=== PATIENT | female | born 1980 | race Caucasian/White ===

== ENCOUNTER 2017-04-17 15:10 | Emergency (ER) | payer BC, OTHER ==
[~2017-04-17] VITALS: Ht 162.6 cm; Wt 63.5 kg
[~2017-04-17 15:10] MED LIST: CIPR500 PO; ERYT1OIN BOTHEYES; Flomax0.4 MG PO; HYDMOR4 PO; IBUP800 PO; MULVITMIND PO; MULVITMINE; Norco 10-325 T1 EACH PO; Norco 5-325 Ta1 EACH PO; ONDA4 PO; PENVK500 PO; PROM25 PO; Percocet 5-3251 EACH PO; RXHYDMOR2 PO; RXPROM25 PO; RXPROM25S PR; TAMS.4ER PO; TRAM50 PO; Verotin-Gr Cap1 EACH PO; Zofran Odt4 MG SL
[2017-04-17] MEDS ORDERED: Sudogest60 MG PO (16:41)
[2017-04-17] MEDS ORDERED: Augmentin 875-1 EACH PO (16:41)
== END 2017-04-17 16:49 | disposition home or self-care (01) ==
LOC: ER 15:10
DX: J32.9 Chronic sinusitis, unspecified (principal); Z87.891 Personal history of nicotine dependence; Z87.442 Personal history of urinary calculi
CPT/HCPCS: 70450; 96372; 99284; J0780; J1200; J1885

== ENCOUNTER 2017-05-30 23:19 | Emergency (ER) | payer BC, OTHER ==
[~2017-05-30] VITALS: Ht 162.6 cm; Wt 63.5 kg
[~2017-05-30 23:19] MED LIST changes: +Augmentin 875-1 EACH PO; +Sudogest60 MG PO
[2017-05-31] MEDS ORDERED: Doxycycline Hy100 MG PO (00:23)
== END 2017-05-31 01:10 | disposition home or self-care (01) ==
LOC: ER 23:19
DX: R21 Rash and other nonspecific skin eruption (principal); L08.9 Local infection of the skin and subcutaneous tissue, unspecified; Z79.899 Other long term (current) drug therapy; Z87.442 Personal history of urinary calculi; Z87.891 Personal history of nicotine dependence
CPT/HCPCS: 99283

== ENCOUNTER 2019-02-22 10:52 | Emergency (ER) | payer BC ==
[~2019-02-22] VITALS: Ht 162.6 cm; Wt 70.3 kg
[~2019-02-22 10:52] MED LIST changes: +Doxycycline Hy100 MG PO
== END 2019-02-22 11:33 | disposition home or self-care (01) ==
LOC: ER 10:52
DX: S50.12XA Contusion of left forearm, initial encounter (principal); Z87.891 Personal history of nicotine dependence; X58.XXXA Exposure to other specified factors, initial encounter
CPT/HCPCS: 73090; 99283-25

== ENCOUNTER 2019-08-27 22:11 | Inpatient (IN) | payer BC ==
[~2019-08-27] VITALS: Ht 162.6 cm; Wt 64.9 kg
[2019-08-27] MEDS ORDERED: Catapres0.2 MG PO (22:18)
[2019-08-27] MEDS ORDERED: Ativan1 MG PO (22:19)
[2019-08-27 23:17] LABS: Source, Urine Clean Catch
[2019-08-27 23:20] LABS: Bilirubin, Urine Neg (Neg); Blood, Urine 4+ (Neg); Glucose Qualitative, Urine Neg (Neg); Ketones, Urine Neg (Neg); Leukocyte Esterase, Urine 1+ (Neg); Nitrite, Urine Neg (Neg); Protein, Urine 1+ (Neg); Specific Gravity, Urine 1.015 (1.003-1.022); Urobilinogen, Urine NORM (Normal); pH, Urine 6.5 (5.0-8.0)
[2019-08-27 23:21] LABS: Appearance, Urine Clear (Clear); Color, Urine Yellow (P-Yellow)
[2019-08-27 23:25] LABS: BASOPHILS ABSOLUTE AUTO 0.07 K/mm3 (0.00-0.23); BASOPHILS PERCENT AUTO 1 % (0-2); EOSINOPHILS ABSOLUTE AUTO 0.37 K/mm3 (0.00-0.68); EOSINOPHILS PERCENT AUTO 4 % (0-6); IMMATURE GRAN ABSOLUTE AUTO 0.02 K/mm3 (0.00-0.10); IMMATURE GRAN PERCENT AUTO 0 % (0-1); LYMPHOCYTES ABSOLUTE AUTO 2.13 K/mm3 (0.84-5.20); LYMPHOCYTES PERCENT AUTO 21 % (21-46); MONOCYTES ABSOLUTE AUTO 0.53 K/mm3 (0.16-1.47); MONOCYTES PERCENT AUTO 5 % (4-13); Mean Corpuscular HGB 30.1 pg (26.0-34.0); Mean Corpuscular HGB Conc 33.3 g/dL (31.5-36.5); Mean Corpuscular Volume 90 fL (80-100); Mean Platelet Volume 11.3 fL (9.1-12.4); NEUTROPHILS ABSOLUTE AUTO 6.85 K/mm3 (1.96-9.15); NEUTROPHILS PERCENT AUTO 69 % (41-73); Platelet Count 246 K/mm3 (150-400); RDW Coefficient Variation 13.7 % (11.7-14.2); RDW Standard Deviation 45.6 fL (35.1-46.3); Red Blood Cell Count 4.99 M/mm3 (3.80-5.20); White Blood Cell Count 9.97 K/mm3 (4.00-11.30)
[2019-08-27 23:31] LABS: U Amphetamine Screen Not Detected; U Barbituate Screen Not Detected; U Benzodiazapine Screen DETECTED; U Buprenorphine Screen Not Detected; U Cannabinoids Screen DETECTED; U Cocaine Screen Not Detected; U Methadone Screen Not Detected; U Methamphetamine Screen Not Detected; U Opiates Screen Not Detected; U Oxycodone Screen Not Detected; U Phencyclidine Screen Not Detected; U Propoxyphene Screen Not Detected
[2019-08-27 23:32] LABS: Bacteria Few /hpf; Mucus Light (0-Heavy); Squamous Epithelial Cells Few /hpf (Few)
[2019-08-27 23:48] LABS: Alanine Aminotransfer (ALT/SGP 31 U/L (12-78); Albumin, Blood 4.3 g/dL (3.4-5.0); Albumin/Globulin Ratio 1.1 (0.8-1.8); Alk Phos 56 U/L (50-136); Anion Gap 5 mmol/L (6-16); Aspartate Aminotrans (AST/SGOT 21 U/L (12-37); Bilirubin, Total 0.3 mg/dL (0.1-1.0); Blood Urea Nitrogen 9 mg/dL (8-24); CO2, Blood 27 mmol/L (21-32); Calcium, Blood 9.2 mg/dL (8.5-10.1); Chloride, Blood 111 mmol/L (98-108); Ethanol (Alcohol), Blood, Med 75 mg/dL; Globulin, Blood 3.8 g/dL (2.2-4.0); Glomerular Filtration Rate >60 (60-); Glucose, Blood 76 mg/dL (70-99); Potassium, Blood 3.2 mmol/L (3.5-5.5); Salicylate <1.7 mg/dL (2.8-20.0); Sodium, Blood 143 mmol/L (136-145); Thyroxine (T4) 9.8 ug/dL (4.8-13.9); Total Protein, Blood 8.1 g/dL (6.4-8.2)
[2019-08-27 23:49] LABS: Acetaminophen, Random <2.0 ug/mL (10.0-30.0)
--- NOTE | 2019-08-28 02:49 | NUR ---
PT ARRIVES FROM ED TO ICU 11 AT 0135. PT ABLE TO ASSIST TRANSFERRING TO ICU STRETCHER. PT APPEARS DROWSY BUT ABLE TO APPROPRIATELY FOLLOW COMMANDS. PT DENIES SI STATING THAT SHE IS "GOING THROUGH A DIVORCE" AND THAT HER KIDS WERE "FORCED" TO GO TO THEIR DAD'S HOUSE THIS WEEKEND FOR VISITATION. PT REPORTS THAT SHE DOESN'T NORMALLY DRINK BUT THAT SHE DRANK VODKA (UNABLE TO RECALL HOW MUCH), TOOK 2 LORAZEPAM, 1 KLONOPINE THAT SHE FOUND AND UNSPECIFIED NUMBER OF CLONIDINE. PT DENIES HISTORY OF DEPRESSION, REPORTS ONGOING ANXIETY. DENIES CURRENT OR PREVIOUS SUICIDE ATTEMPTS. PT EMOTIONAL AT TIMES ASKING TO TALK TO "DEON" HER CURRENT BOYFRIEND AND THEN STATES THAT SHE "DOESN'T WANT TO TALK ABOUT THIS ANYMORE". PT PLACED ON 2-MD HOLD. ROOM MITIGATED PER POLICY, DOOR/CURTAIN OPEN, PT ON CAMERA MONITORING (CALLED TO CONFIRM). ALEXAKATREVOR/TELEPSYCH CONSULT SUBMITTED. PT'S VSS. PT DENIES NEEDS AT THIS TIME. BANANA BAG INFUSING @200 ML/HR, KCL @50 ML/HR. SEE FULL ADMISSION ASSESSMENT
[2019-08-28 03:22] LABS: BASOPHILS ABSOLUTE AUTO 0.06 K/mm3 (0.00-0.23); BASOPHILS PERCENT AUTO 1 % (0-2); EOSINOPHILS ABSOLUTE AUTO 0.35 K/mm3 (0.00-0.68); EOSINOPHILS PERCENT AUTO 4 % (0-6); Hematocrit 42.1 % (33.0-51.0); Hemoglobin 14.3 g/dL (11.5-16.0); IMMATURE GRAN ABSOLUTE AUTO 0.02 K/mm3 (0.00-0.10); IMMATURE GRAN PERCENT AUTO 0 % (0-1); LYMPHOCYTES ABSOLUTE AUTO 2.46 K/mm3 (0.84-5.20); LYMPHOCYTES PERCENT AUTO 28 % (21-46); MONOCYTES ABSOLUTE AUTO 0.46 K/mm3 (0.16-1.47); MONOCYTES PERCENT AUTO 5 % (4-13); Mean Corpuscular HGB 30.3 pg (26.0-34.0); Mean Corpuscular Volume 89 fL (80-100); Mean Platelet Volume 11.1 fL (9.1-12.4); NEUTROPHILS ABSOLUTE AUTO 5.58 K/mm3 (1.96-9.15); NEUTROPHILS PERCENT AUTO 63 % (41-73); Platelet Count 218 K/mm3 (150-400); RDW Coefficient Variation 13.6 % (11.7-14.2); RDW Standard Deviation 45.1 fL (35.1-46.3); Red Blood Cell Count 4.72 M/mm3 (3.80-5.20); White Blood Cell Count 8.93 K/mm3 (4.00-11.30)
[2019-08-28 03:39] LABS: Anion Gap 5 mmol/L (6-16); Blood Urea Nitrogen 8 mg/dL (8-24); Bun/Creatinine Ratio 12.1 (12.0-20.0); CO2, Blood 25 mmol/L (21-32); Calcium, Blood 8.9 mg/dL (8.5-10.1); Chloride, Blood 113 mmol/L (98-108); Creatinine, Blood 0.66 mg/dL (0.40-1.00); Glomerular Filtration Rate >60 (60-); Glucose, Blood 111 mg/dL (70-99); Potassium, Blood 3.4 mmol/L (3.5-5.5); Sodium, Blood 143 mmol/L (136-145)
--- NOTE | 2019-08-28 03:49 | NUR ---
CONTACTED POISON CONTROL, REVIEWED EKG AND 0330 LABS. POISON CONTROL SUPPORTS CURRENT PLAN OF CARE. SUGGESTED TO CALL BACK NEEDED IF ANY MEDICAL CHANGES.
--- NOTE | 2019-08-28 04:35 | NUR ---
SPOKE WITH PT'S BOYFRIEND "DEON". ACCORDING TO DEON, HE AND PT WERE "HAVING A GOOD TIME AND PT DECIDED TO TRY AND MAKE IT BETTER BY ADDING PILLS". DEON REPORTS PT DRANK HALF OF A FIFTH OF VODKA, TOOK 2 CLONIDINE, 1 KLONOPIN, AND TO 2 LORAZEPAM. DEON STATES PT APPEARED TO HAVE A "SMALL SEIZURE TWICE" BUT WAS COHERENT DURING THEM. DEON STATES HE GOT PT DRESSED BUT COULDN'T GET HER DOWNSTAIRS SO HE CALLED 911 FOR ASSISTANCE. DEON ACKNOWLEDGES PT WAS EMOTIONAL BUT ADAMENTLY DENIES PT WAS SUICIDAL AT ANY TIME. DEON REPORTS THAT THIS IS THE FIRST TIME IN A YEAR THAT PT HAS HAD ANYTHING ALCOHOLIC TO DRINK. DEON REPORTS THAT PT IS SUPPOSED TO PICK HER CHILDREN UP FROM HER EX IN THE MORNING, DEON SAYS PT'S PARENTS LIVE "2 HOUSES DOWN" AND THAT HE WILL CALL AND ARRANGE FOR THEM TO PICK KIDS UP AND CARE FOR THEM UNTIL PT IS RELEASE. UPDATED BOYFRIEND ON 2-MD PSYCH HOLD AND PLAN OF CARE. DEON STATES UNDERSTANDING AND RELATES THAT HE WILL UPDATE FAMILY IN MORNING.
--- NOTE | 2019-08-28 06:00 | NUR ---
SHIFT SUMMARY NO ACUTE CHANGES SINCE ADMISSION. PT HAS BEEN SLEEPING SINCE ADMISSION TO ICU. VSS. SEE PREVIOUS NOTES FROM THIS SHIFT. WILL REPORT TO DAYSHIFT NURSE.
--- NOTE | 2019-08-28 07:32 | NUR ---
ASSUMED CARE: REPORT RECEIVED FROM EBEN Heredia RN. ASSUMED CARE OF THIS PT AT APPROX 0700. AT THIS TIME, THE PT IS RESTING QUIETLY. PER REPORT, THE PT CONTINUES TO DENY ANY SI. MODERATE RISK SI PRECAUTIONS IN PLACE W/ ROOM MITIGATED & CAMERA MONITORING IN PLACE. THE PT IS AMBULATORY & ABLE TO CALL FOR ASSISTANCE APPROPRIATELY. WILL CONTINUE TO MONITOR & UPDATE NEEDED.
--- NOTE | 2019-08-28 09:15 | NUR ---
DR TOMAS: PROVIDER AT BEDSIDE TO EVAL PT. SHE REQUESTS THAT THIS RN CHECK IF DR BOCANEGRA IS SCHEDULED THIS WEEKEND, HE IS NOT & THEREFORE TELEPSYCHIATRY HAS BEEN ORDERED FOR THIS PT. REGULAR DIET ORDERED & PT STATUS CHANGED TO MEDICAL W/ NO TELE, ORDERS PLACED.
--- NOTE | 2019-08-28 09:38 | NUR ---
TELEPSYCHIATRY: CONSULTATION IS OCCURING AT THIS TIME W/ DR MORALES. WILL UPDATE DR TOMAS W/ RESULTS ONCE CONSULTATION IS COMPLETED.
[2019-08-28] MEDS ORDERED: CLON.1 PO (10:49)
[2019-08-28] MEDS ORDERED: Ativan1 MG PO (10:50)
--- NOTE | 2019-08-28 11:50 | NUR ---
DISCHARGE TO HOME: PATIENT IS ABLE TO DRESS SELF & HAS BEEN TAKEN OUT VIA WC AT 1150 BY ERIC BROWER. PIV & ALL MONITORS HAVE BEEN REMOVED. D/C INFORMATION HAS BEEN REVIEWED & THE PT DENIES FURTHER QUESTIONS. D/C PACKET & ALL BELONGINGS HAVE BEEN TAKEN OUT W/ PT.
== END 2019-08-28 11:50 | disposition home or self-care (01) | DRG 917 ==
LOC: ER 22:11 → ICUW 08-28 00:19
PROVIDERS: Emergency Medicine; ADMIT Family Medicine
DX: T42.4X2A Poisoning by benzodiazepines, intentional self-harm, initial encounter (principal); G92 Toxic encephalopathy; T46.5X2A Poisoning by other antihypertensive drugs, intentional self-harm, initial encounter; Y92.9 Unspecified place or not applicable; F41.9 Anxiety disorder, unspecified; Z87.891 Personal history of nicotine dependence; E87.6 Hypokalemia; Z63.5 Disruption of family by separation and divorce; F10.929 Alcohol use, unspecified with intoxication, unspecified; Y90.3 Blood alcohol level of 60-79 mg/100 ml
CPT/HCPCS: 36415; 80048; 80053; 81001; 81025; 84436; 85025; 87086; 87147; 93005; 93010; 99285-25; G0480; J3411; J3475; J3480; J7042; Q3014

== ENCOUNTER 2019-12-28 00:35 | Emergency (ER) | payer BC, OTHER ==
[~2019-12-28] VITALS: Ht 162.6 cm; Wt 61.2 kg
[~2019-12-28 00:35] MED LIST changes: +Ativan1 MG PO; +CLON.1 PO; +Catapres0.2 MG PO
[2019-12-28 01:36] LABS: BASOPHILS ABSOLUTE AUTO 0.07 K/mm3 (0.00-0.23); BASOPHILS PERCENT AUTO 1 % (0-2); EOSINOPHILS ABSOLUTE AUTO 0.44 K/mm3 (0.00-0.68); EOSINOPHILS PERCENT AUTO 4 % (0-6); Hematocrit 42.5 % (33.0-51.0); Hemoglobin 14.3 g/dL (11.5-16.0); IMMATURE GRAN ABSOLUTE AUTO 0.03 K/mm3 (0.00-0.10); IMMATURE GRAN PERCENT AUTO 0 % (0-1); LYMPHOCYTES ABSOLUTE AUTO 2.85 K/mm3 (0.84-5.20); LYMPHOCYTES PERCENT AUTO 29 % (21-46); MONOCYTES ABSOLUTE AUTO 0.66 K/mm3 (0.16-1.47); MONOCYTES PERCENT AUTO 7 % (4-13); Mean Corpuscular HGB 30.9 pg (26.0-34.0); Mean Corpuscular HGB Conc 33.6 g/dL (31.5-36.5); Mean Corpuscular Volume 92 fL (80-100); Mean Platelet Volume 11.3 fL (9.1-12.4); NEUTROPHILS ABSOLUTE AUTO 5.95 K/mm3 (1.96-9.15); NEUTROPHILS PERCENT AUTO 60 % (41-73); Platelet Count 232 K/mm3 (150-400); RDW Coefficient Variation 13.2 % (11.7-14.2); RDW Standard Deviation 45.1 fL (35.1-46.3); Red Blood Cell Count 4.63 M/mm3 (3.80-5.20)
== END 2019-12-28 03:30 | disposition left against medical advice (07) ==
LOC: ER 00:35
PROVIDERS: Student in an Organized Health Care Education/Training Program
DX: N93.9 Abnormal uterine and vaginal bleeding, unspecified (principal); Z87.442 Personal history of urinary calculi; Z87.891 Personal history of nicotine dependence
CPT/HCPCS: 84703; 85025; 96374; 99284-25; J1885

== ENCOUNTER 2020-04-12 17:54 | Emergency (ER) | payer OTHER ==
[~2020-04-12] VITALS: Ht 162.6 cm; Wt 61.2 kg
[2020-04-12] MEDS ORDERED: AMOX500 PO (19:03)
[2020-04-12] MEDS ORDERED: Norco 7.5-3251 EACH PO (19:03)
[2020-04-12] MEDS ORDERED: CIPRODEX OTIC7.5 M1 RIGHTEAR (19:03)
== END 2020-04-12 19:21 | disposition home or self-care (01) ==
LOC: ER 17:54
DX: H60.91 Unspecified otitis externa, right ear (principal); H61.23 Impacted cerumen, bilateral
CPT/HCPCS: 99282; A9270

== ENCOUNTER 2020-04-19 16:33 | Emergency (ER) | payer BC, OTHER ==
[~2020-04-19] VITALS: Ht 162.6 cm; Wt 61.2 kg
[~2020-04-19 16:33] MED LIST changes: +AMOX500 PO; +CIPRODEX OTIC7.5 M1 RIGHTEAR; +Norco 7.5-3251 EACH PO
[2020-04-19] MEDS ORDERED: HYDR1TAB94 PO (19:27)
== END 2020-04-19 19:31 | disposition home or self-care (01) ==
LOC: ER 16:33
DX: S00.83XA Contusion of other part of head, initial encounter (principal); S00.11XA Contusion of right eyelid and periocular area, initial encounter; Z87.442 Personal history of urinary calculi; Z87.891 Personal history of nicotine dependence; Y04.2XXA Assault by strike against or bumped into by another person, initial encounter
CPT/HCPCS: 70486; 99284-25

== ENCOUNTER 2020-04-26 03:13 | Emergency (ER) | payer BC, OTHER ==
[~2020-04-26] VITALS: Ht 162.6 cm; Wt 61.2 kg
[~2020-04-26 03:13] MED LIST changes: +HYDR1TAB94 PO
== END 2020-04-26 04:15 | disposition home or self-care (01) ==
LOC: ER 03:13
DX: S70.02XA Contusion of left hip, initial encounter (principal); Z87.442 Personal history of urinary calculi; Z87.891 Personal history of nicotine dependence; Y04.2XXA Assault by strike against or bumped into by another person, initial encounter
CPT/HCPCS: 99283

== ENCOUNTER 2020-06-29 10:46 | Emergency (ER) | payer BC, OTHER ==
[~2020-06-29] VITALS: Ht 162.6 cm; Wt 63.5 kg
[2020-06-29] MEDS ORDERED: IBUP400 PO (12:22)
== END 2020-06-29 13:00 | disposition home or self-care (01) ==
LOC: ER 10:46
DX: F41.9 Anxiety disorder, unspecified (principal); F17.210 Nicotine dependence, cigarettes, uncomplicated; Z79.899 Other long term (current) drug therapy
CPT/HCPCS: 70450; 71046; 72125; 99284-25

== ENCOUNTER 2020-08-22 22:41 | Emergency (ER) | payer BC, OTHER ==
[~2020-08-22] VITALS: Ht 162.6 cm; Wt 68.0 kg
[~2020-08-22 22:41] MED LIST changes: +IBUP400 PO
[2020-08-22 23:09] LABS: BASOPHILS ABSOLUTE AUTO 0.06 K/mm3 (0.00-0.23); BASOPHILS PERCENT AUTO 1 % (0-2); EOSINOPHILS ABSOLUTE AUTO 0.31 K/mm3 (0.00-0.68); EOSINOPHILS PERCENT AUTO 4 % (0-6); Hematocrit 38.1 % (33.0-51.0); Hemoglobin 12.9 g/dL (11.5-16.0); IMMATURE GRAN ABSOLUTE AUTO 0.02 K/mm3 (0.00-0.10); IMMATURE GRAN PERCENT AUTO 0 % (0-1); LYMPHOCYTES ABSOLUTE AUTO 1.48 K/mm3 (0.84-5.20); LYMPHOCYTES PERCENT AUTO 19 % (21-46); MONOCYTES ABSOLUTE AUTO 0.88 K/mm3 (0.16-1.47); MONOCYTES PERCENT AUTO 11 % (4-13); Mean Corpuscular HGB 30.6 pg (26.0-34.0); Mean Corpuscular HGB Conc 33.9 g/dL (31.5-36.5); Mean Corpuscular Volume 90 fL (80-100); Mean Platelet Volume 11.2 fL (9.1-12.4); NEUTROPHILS ABSOLUTE AUTO 5.16 K/mm3 (1.96-9.15); NEUTROPHILS PERCENT AUTO 65 % (41-73); Platelet Count 211 K/mm3 (150-400); RDW Coefficient Variation 13.6 % (11.7-14.2); RDW Standard Deviation 44.9 fL (35.1-46.3); Red Blood Cell Count 4.22 M/mm3 (3.80-5.20); White Blood Cell Count 7.91 K/mm3 (4.00-11.30)
[2020-08-22 23:21] LABS: Alanine Aminotransfer (ALT/SGP 35 U/L (12-78); Albumin, Blood 3.7 g/dL (3.4-5.0); Alk Phos 73 U/L (50-136); Anion Gap 5 mmol/L (6-16); Aspartate Aminotrans (AST/SGOT 17 U/L (12-37); Bilirubin, Total 0.2 mg/dL (0.1-1.0); Blood Urea Nitrogen 10 mg/dL (8-24); Bun/Creatinine Ratio 11.8 (12.0-20.0); CO2, Blood 24 mmol/L (21-32); Calcium, Blood 9.6 mg/dL (8.5-10.1); Chloride, Blood 110 mmol/L (98-108); Creatinine, Blood 0.85 mg/dL (0.40-1.00); Globulin, Blood 3.6 g/dL (2.2-4.0); Glomerular Filtration Rate >60 (60-); Glucose, Blood 111 mg/dL (70-99); Potassium, Blood 3.6 mmol/L (3.5-5.5); Sodium, Blood 139 mmol/L (136-145); Total Protein, Blood 7.3 g/dL (6.4-8.2)
[2020-08-22 23:23] LABS: Source, Urine Clean Catch
[2020-08-22 23:25] LABS: Bilirubin, Urine Neg (Neg); Blood, Urine 3+ (Neg); Glucose Qualitative, Urine Neg (Neg); Ketones, Urine Neg (Neg); Leukocyte Esterase, Urine 3+ (Neg); Nitrite, Urine Pos (Neg); Protein, Urine 2+ (Neg); Specific Gravity, Urine 1.015 (1.003-1.022); Urobilinogen, Urine NORM (Normal)
[2020-08-22 23:34] LABS: Appearance, Urine Hazy (Clear); Color, Urine Yellow (P-Yellow)
[2020-08-22 23:35] LABS: Bacteria Many /hpf; Red Blood Cells, Urine 0-2 /hpf (0-2); Squamous Epithelial Cells Few /hpf (Few); White Blood Cells, Urine TNTC /hpf (0-5)
[2020-08-22] MEDS ORDERED: SERT25 PO (23:40)
[2020-08-23 03:40] LABS: SARS-Cov-2 (COVID-19) PCR, MMC NEGATIVE (NEGATIVE)
== END 2020-08-23 04:48 | disposition left against medical advice (07) ==
LOC: ER 22:41
PROVIDERS: Emergency Medicine; Physician Assistant
DX: N13.2 Hydronephrosis with renal and ureteral calculous obstruction (principal); R82.81 Pyuria; Z20.822 Contact with and (suspected) exposure to COVID-19
CPT/HCPCS: 36415; 74176; 80053; 81001; 81025; 85025; 87077; 87086; 87186; 96365; 96375; 99284-25; J0696; J1170; J1885; J2405; J3010; U0004

== ENCOUNTER 2020-10-10 20:42 | Emergency (ER) | payer BC, OTHER ==
[~2020-10-10] VITALS: Ht 162.6 cm; Wt 68.0 kg
[~2020-10-10 20:42] MED LIST changes: +SERT25 PO
== END 2020-10-11 00:18 | disposition home or self-care (01) ==
LOC: ER 20:42
DX: T71.9XXA Asphyxiation due to unspecified cause, initial encounter (principal); S00.83XA Contusion of other part of head, initial encounter; Z87.891 Personal history of nicotine dependence; Z79.899 Other long term (current) drug therapy; Y04.2XXA Assault by strike against or bumped into by another person, initial encounter
CPT/HCPCS: 70450; 99284-25; A9270

== ENCOUNTER 2021-03-07 11:48 | Emergency (ER) | payer OTHER ==
[~2021-03-07] VITALS: Ht 162.6 cm; Wt 65.8 kg
[2021-03-07 13:13] LABS: BASOPHILS ABSOLUTE AUTO 0.07 K/mm3 (0.00-0.23); BASOPHILS PERCENT AUTO 1 % (0-2); EOSINOPHILS ABSOLUTE AUTO 0.22 K/mm3 (0.00-0.68); EOSINOPHILS PERCENT AUTO 3 % (0-6); Hematocrit 43.1 % (33.0-51.0); Hemoglobin 14.7 g/dL (11.5-16.0); IMMATURE GRAN ABSOLUTE AUTO 0.02 K/mm3 (0.00-0.10); IMMATURE GRAN PERCENT AUTO 0 % (0-1); LYMPHOCYTES ABSOLUTE AUTO 2.23 K/mm3 (0.84-5.20); LYMPHOCYTES PERCENT AUTO 25 % (21-46); MONOCYTES PERCENT AUTO 7 % (4-13); Mean Corpuscular HGB 29.9 pg (26.0-34.0); Mean Corpuscular HGB Conc 34.1 g/dL (31.5-36.5); Mean Corpuscular Volume 88 fL (80-100); Mean Platelet Volume 11.3 fL (9.1-12.4); NEUTROPHILS ABSOLUTE AUTO 5.81 K/mm3 (1.96-9.15); NEUTROPHILS PERCENT AUTO 65 % (41-73); Platelet Count 238 K/mm3 (150-400); RDW Standard Deviation 42.5 fL (35.1-46.3); Red Blood Cell Count 4.91 M/mm3 (3.80-5.20); White Blood Cell Count 8.95 K/mm3 (4.00-11.30)
[2021-03-07 13:35] LABS: Alanine Aminotransfer (ALT/SGP 35 U/L (12-78); Albumin, Blood 4.2 g/dL (3.4-5.0); Albumin/Globulin Ratio 1.2 (0.8-1.8); Alk Phos 62 U/L (50-136); Anion Gap 6 mmol/L (6-16); Aspartate Aminotrans (AST/SGOT 25 U/L (12-37); Bilirubin, Total 0.3 mg/dL (0.1-1.0); Blood Urea Nitrogen 11 mg/dL (8-24); Bun/Creatinine Ratio 13.1 (12.0-20.0); CO2, Blood 24 mmol/L (21-32); Chloride, Blood 111 mmol/L (98-108); Creatinine, Blood 0.84 mg/dL (0.40-1.00); Globulin, Blood 3.5 g/dL (2.2-4.0); Glomerular Filtration Rate >60 (60-); Glucose, Blood 84 mg/dL (70-99); Potassium, Blood 4.1 mmol/L (3.5-5.5); Sodium, Blood 141 mmol/L (136-145); Total Protein, Blood 7.7 g/dL (6.4-8.2)
[2021-03-07 13:39] LABS: Source, Urine Clean Catch
[2021-03-07 14:05] LABS: Appearance, Urine Clear (Clear); Bilirubin, Urine Neg (Neg); Blood, Urine Neg (Neg); Color, Urine Yellow (P-Yellow); Glucose Qualitative, Urine Neg (Neg); Ketones, Urine Neg (Neg); Leukocyte Esterase, Urine 2+ (Neg); Nitrite, Urine Neg (Neg); Protein, Urine 1+ (Neg); Specific Gravity, Urine 1.015 (1.003-1.022); Urobilinogen, Urine NORM (Normal)
[2021-03-07 14:23] LABS: Red Blood Cells, Urine 0-2 /hpf (0-2); Squamous Epithelial Cells Mod /hpf (Few)
[2021-03-07 14:24] LABS: Bacteria Many /hpf
[2021-03-07 14:59] LABS: Source, Urine Clean Catch
[2021-03-07 15:02] LABS: Appearance, Urine Clear (Clear); Bilirubin, Urine Neg (Neg); Blood, Urine Neg (Neg); Color, Urine Yellow (P-Yellow); Glucose Qualitative, Urine Neg (Neg); Ketones, Urine Neg (Neg); Leukocyte Esterase, Urine 2+ (Neg); Nitrite, Urine Neg (Neg); Protein, Urine Neg (Neg); Urobilinogen, Urine NORM (Normal)
[2021-03-07 15:10] LABS: Bacteria Few /hpf; Red Blood Cells, Urine 0-2 /hpf (0-2); Squamous Epithelial Cells Few /hpf (Few)
[2021-03-07] MEDS ORDERED: Norco 5-325 Ta1 EACH PO (16:26)
[2021-03-07] MEDS ORDERED: CEPH250A PO (16:26)
== END 2021-03-07 17:05 | disposition home or self-care (01) ==
LOC: ER 11:48
PROVIDERS: Physician Assistant
DX: N13.2 Hydronephrosis with renal and ureteral calculous obstruction (principal); Z87.442 Personal history of urinary calculi
CPT/HCPCS: 36415; 76770; 80053; 81001; 81025; 85025; 87086; 96374; 96375; 96376; 99284-25; A9270; J0696; J1170; J1885; J2405

== ENCOUNTER → 2024-01-11 | Outpatient (CLI) | payer OTHER ==
[~2024-01-11] MED LIST changes: +CEPH250A PO
== END ==
LOC: LAB 10:59 → LAB SHORT 10:59
DX: N39.0 Urinary tract infection, site not specified (principal)
CPT/HCPCS: 87086

== ENCOUNTER 2024-02-25 13:08 | Inpatient (IN) | payer OTHER ==
[~2024-02-25] VITALS: Ht 162.6 cm; Wt 83.0 kg
[2024-02-25] MEDS ORDERED: Misoprostol 200 MCG Tab VAG SCH (14:00)
[2024-02-25] MEDS ORDERED: Acetaminophen 500 MG Tab PO PRN (14:00)
[2024-02-25] MEDS ORDERED: FentaNYL 2mcg/ml-Bup 0.1% Epd 250 ML EPI PRN (14:00)
[2024-02-25] MEDS ORDERED: Misoprostol 200 MCG Tab BC PRN (14:00)
[2024-02-25] MEDS ORDERED: OXYTOCIN/RINGER'S LACTATE 500 ML IV SCH (14:00)
[2024-02-25] MEDS ORDERED: Lactated Ringer's 1,000 ML IV SCH ×3 (14:00)
[2024-02-25] MEDS ORDERED: Ondansetron HCl 2 MG / ML 2ML Vial IV PRN (14:00)
[2024-02-25] MEDS ORDERED: OXYTOCIN/RINGER'S LACTATE 500 ML IV PRN (14:00)
[2024-02-25] MEDS ORDERED: FentaNYL Citrate 50 MCG/ML 2 ML Injection IV PRN (14:00)
[2024-02-25] MEDS ORDERED: Carboprost Tromethamine 250 MCG/ML 1ML Amp IM PRN (14:00)
[2024-02-25] MEDS ORDERED: ePHEDrine Sulfate 50 MG/ML 1ML Injection XX PRN (14:00)
[2024-02-25] MEDS ORDERED: Misoprostol 200 MCG Tab PR PRN (14:00)
[2024-02-25] MEDS ORDERED: Oxytocin 10 Unit / ML Vial IM PRN (14:00)
[2024-02-25] MEDS ORDERED: Methylergonovine Maleate 0.2MG / ML 1ML Amp IM PRN (14:00)
[2024-02-25] MEDS ORDERED: Lactated Ringer's 1,000 ML IV PRN (14:00)
[2024-02-25 14:02] VITALS: BP 121/71
[2024-02-25] MEDS ORDERED: Calcium Carbonate 500 MG Tab Chew PO SCH (14:10)
[2024-02-25] MEDS ORDERED: Tranexamic Acid 1,000 MG in NS 100 ML IV SCH (14:25)
[2024-02-25 14:26] LABS: BASOPHILS ABSOLUTE AUTO 0.05 K/mm3 (0.00-0.23); BASOPHILS PERCENT AUTO 0 % (0-2); EOSINOPHILS ABSOLUTE AUTO 0.29 K/mm3 (0.00-0.68); EOSINOPHILS PERCENT AUTO 2 % (0-6); Hematocrit 36.8 % (33.0-51.0); Hemoglobin 12.9 g/dL (11.5-16.0); IMMATURE GRAN ABSOLUTE AUTO 0.18 K/mm3 (0.00-0.10); IMMATURE GRAN PERCENT AUTO 1 % (0-1); LYMPHOCYTES ABSOLUTE AUTO 1.75 K/mm3 (0.84-5.20); LYMPHOCYTES PERCENT AUTO 12 % (21-46); MONOCYTES ABSOLUTE AUTO 0.96 K/mm3 (0.16-1.47); MONOCYTES PERCENT AUTO 7 % (4-13); Mean Corpuscular HGB 30.8 pg (26.0-34.0); Mean Corpuscular HGB Conc 35.1 g/dL (31.5-36.5); Mean Corpuscular Volume 88 fL (80-100); Mean Platelet Volume 11.5 fL (9.1-12.4); NEUTROPHILS ABSOLUTE AUTO 11.06 K/mm3 (1.96-9.15); NEUTROPHILS PERCENT AUTO 78 % (41-73); Platelet Count 216 K/mm3 (150-400); RDW Coefficient Variation 13.9 % (11.7-14.2); RDW Standard Deviation 44.3 fL (35.1-46.3); Red Blood Cell Count 4.19 M/mm3 (3.80-5.20); White Blood Cell Count 14.29 K/mm3 (4.00-11.30)
[2024-02-25 15:45] VITALS: BP 125/75
[2024-02-25 16:00] VITALS: BP 124/75
[2024-02-25 16:15] VITALS: BP 128/80
--- NOTE | 2024-02-25 16:54 | NUR ---
patient states having some cramping
[2024-02-25 20:20] VITALS: BP 116/66
[2024-02-25] MEDS ORDERED: Misoprostol 200 MCG Tab VAG PRN (21:20)
--- NOTE | 2024-02-25 21:27 | NUR ---
Received pt into care at 0700. Pt ++ sobbing and crying. Oral Health Therapist at bedside for 2 hours provided education re process and emotional support. Snacks provided. Pt aware to call if any pressure or concerns. Received x2 doses of fentanyl for pain. Feeling more settled after same. Pt coping better with reassurance and pain meds. SO at bedside.
[2024-02-26] VITALS (31 sets, daily range): BP systolic 102–132; BP diastolic 56–92
--- NOTE | 2024-02-26 00:21 | NUR ---
Dr. Soto made aware of recent VE and pts choice to wait to do the next dose until cramping settles down. + emoional. consolable. pain managed with fentanyl.
[2024-02-26] MEDS ORDERED: HYDROmorphone 1 MG/ML 30 ML Bag IV PRN (06:00)
[2024-02-26] MEDS ORDERED: Misoprostol 100 MCG Tab PO SCH (06:05)
--- NOTE | 2024-02-26 06:57 | NUR ---
PT DELIVERED AT 0549. PT EMOTIONAL BUT CONSOLABLE. WONDERLY PRESENT FOR DELIVERY. GAVE MISO 400MCG PER ORDERS. PLACENTA NOT YET DELIVERED. WONDERLY SAID "OK" RO WAIT 1-2 HOURS TO WAIT FOR PLACENTA TO DELIVER. mADE UP TO BR TO HELP PASS SAME. PT UNABLE TO DO SAME. FLOW SCANT. VSS.
[2024-02-26] MEDS ORDERED: Ketorolac Tromethamine 30mg Vial IV PRN (07:30)
--- NOTE | 2024-02-26 07:35 | NUR ---
PT SITTING ON TOILET, HAS BEEN FOR LAST 15 MINUTES TO WORK WITH GRAVITY TO GET PLACENTA OUT. UMB CORD HANGING, WITH A LIGHT PULL, THE CORD DELIVERED ABOUT 4 INCHES, PT DENIES FEELING ANY THING IN THE VAGINA LIKE PRESSURE OR A TAMPON FEELING, BACK TO BED WITH CLEAN PAD BABY TO THE FRIDGE IN NURSERY, PARENTS WOULD LIKE PRINTS, BUT DUE TO COME BREAKDOWN OCCURING WITH BABY, SHE AND FOB ARE AWARE THAT IF BABY IS REFRIDGERATED FOR A LITTLE WHILE WE MIGHT BE ABLE TO GET SOME PRINTS.
--- NOTE | 2024-02-26 08:14 | NUR ---
PT DOING A LITTLE BETTER WITH TORDAL. PT HAS A HEATING PAD IN ROOM HEATIN UP. PT TRIED TO GIVE A GRUNTY PUSH AND GOT A LITTLE DIME SIZE FLAT CLOT WITH A SCANT GUSH OF FLUID, DOESNT FEEL LIKE ANY PRESSURE OR ANYTHING IS IN HER VAGINA. SHE IS TO LET RN KNOW IF SHE FEELS ANYTHING.
--- NOTE | 2024-02-26 08:52 | NUR ---
PT TRIED STANDING AND SWAYING AT BEDSIDE FOR 15 MINUTES, JUST MADE HER MORE CRAMPY, BACK TO BED WITH HEATING PAD
--- NOTE | 2024-02-26 08:55 | NUR ---
DR JAIME HAS BEEN UPDATED ON THE [facility] CORD AND CURRENT PROGRESS
--- NOTE | 2024-02-26 09:59 | NUR ---
NEW ORDERS DR WONDERLY AWARE OF BLEEDING AND GAVE ORDERS TO GIVE 400MCG CYTOTEC
[2024-02-26] MEDS ORDERED: Misoprostol 100 MCG Tab PO ONE (10:00)
--- NOTE | 2024-02-26 10:19 | NUR ---
dr stevens at bedside discussing plan of care, pt is good with dr wonderly looking at cervix with sterile speculum and seeing if able to see placenta and remove it. dr wonderly unable to do this, at 1020 talking to pt about new plan of care. agreement to go for d&c. pt questions answered. 1030 dr wonderly consenting pt for d&c, day surgery here for pt. at 1045 pt to daysuregy with lr infusing.
[2024-02-26] MEDS ORDERED: Lactated Ringer's 1,000 ML IV SCH (10:30)
--- NOTE | 2024-02-26 10:38 | NUR ---
DR JAIME CONSENTING PT FOR PROCEDURE, DAY SURGERY HERE FOR PT
--- NOTE | 2024-02-26 10:45 | NUR ---
report to pranay rn in daysurgery, they took pt up via kirsty for d&c procedure, baby to nursery per parents request until they are back from the procedure
[2024-02-26] MEDS ORDERED: CeFAZolin Sodium 2,000 MG in NS 100 ML IV SCH (10:50)
[2024-02-26] MEDS ORDERED: Midazolam HCl 1MG / ML 2ML Vial ONE (10:51)
[2024-02-26] MEDS ORDERED: FentaNYL Citrate 50 MCG/ML 2 ML Injection ONE (10:51)
[2024-02-26] MEDS ORDERED: propofoL 20 ML IV ONE (10:59)
[2024-02-26] MEDS ORDERED: Dexamethasone Sod Phos 10 MG/ML 1ML VIAL ONE (11:05)
[2024-02-26] MEDS ORDERED: Metoclopramide HCl 5MG / ML 2ML Vial ONE (11:05)
[2024-02-26] MEDS ORDERED: Ondansetron HCl 2 MG / ML 2ML Vial ONE (11:05)
--- NOTE | 2024-02-26 11:06 | NUR ---
PT BROUGHT FROM [facility] TO DAY SURGERY FOR D&C W/ DR ROSENBERG. History, Chart, Medications and Allergies reviewed before start of procedure. Lungs clear T/O to Auscultation. Patient confirms NPO status and agrees with scheduled surgery. Pre-Op teaching done. Pt verbalizes understanding. Patient States Post-Procedure ride home has been arranged. PT JEWELRY GIVEN TO HER PARTNER ABDOULAYE FOR SAFEKEEPING.
[2024-02-26] MEDS ORDERED: HYDROmorphone HCl/Pf 1MG SYR ONE (11:07)
[2024-02-26] MEDS ORDERED: Phenylephrine HCl 100 MCG/ML-NS 10MLSYR (1MG/10ML) ONE (11:08)
[2024-02-26] MEDS ORDERED: Ketorolac Tromethamine 30mg Vial ONE (11:29)
[2024-02-26] MEDS ORDERED: Misoprostol 200 MCG Tab ONE (11:29)
--- NOTE | 2024-02-26 11:45 | NUR ---
02/26/24 1145 Eileen Cornell CYTOTEC 400MG ADMINISTED TO PATIENT BY DR ROSENBERG, SEE MD'S POST OP NOTES.
[2024-02-26] MEDS ORDERED: OxyCODONE 5 mg/Acetamin 325 mg TABLET PO ONE (14:35)
[2024-02-26] MEDS ORDERED: Percocet 5-3251 EACH PO (14:40)
[2024-02-26] MEDS ORDERED: PROM25 PO (14:40)
--- NOTE | 2024-02-26 14:51 | NUR ---
DC INSTRUCTIONS GONE OVER WITH PT, DENIES ANY QUESTIONS, HAS PPFU ON THURSDAY WITH JA AT 1300, PT ENCOURAGED TO COME TO APPOINTMENT.
--- NOTE | 2024-02-26 15:03 | NUR ---
DR JAIME NOTIFIED OF PPD SCREEN OF 12, NELLIE FROM [facility] COMING DOWN TO SEE PT
--- NOTE | 2024-02-26 15:15 | NUR ---
DAMARIS FROM [facility] IN ROOM
--- NOTE | 2024-02-26 15:58 | NUR ---
DC HOME WITH ADALID NAVI, THEY WANTED TO WAIT UNTIL BABY WAS SENT WITH SONAM, BABY WAS PICKED UP AT 1350. THEY ARE AWARE SON[facility] WILL CALL THEM THURSDAY TO ARRANGE AN APPOINTMENT. SS WORKER DAMARIS CAME AND SPOKE TO MOM ABOUT HER PPD SCORE, PT CLEARED TO GO HOME. ENCOURAGED TO CALL WITH QUESTIONS, DENIES HAVING ANY JUST WANTS TO GO HOME. HAS [facility] NUMBER, [facility] OFFICE NUMBER, HAS [facility]BRAM [facility] COORDINATOR NUMBER TO CALL RESOURCES FOR QUESTIONS, ENCOURAGED TO CALL THEM.
--- NOTE | 2024-02-29 11:45 | NUR ---
02/29/24 PPFU FOLLOW UP PHONE CALL. PT CALLED AND EXPRESSED THAT SHE DID NOT WANT TO COME IN TODAY. DISCUSSED APPT INFORMATION OVER THE PHONE. ENCOURAGE HER TO CALL [facility] OFFICE AND GET AN APPT WITHIN THE NEXT 12 DAYS. SHE STATED THAT SHE WILL CALL HER AFTER OUR PHONE CALL AND GET SOMETHING SCHEDULED. SHE REPORTS THAT SHE IS TAKING IBUPROFEN FOR PAIN AND THAT SHE DID GO TO URGENT CARE YESTERDAY TO GET SOME XANAX BECAUSE SHE HAS NOT BEEN ABLE TO SLEEP. SHE DENIES HEADACHES, BLURRY VISION, NUMBNESS/TINGLING IN EXTREMITIES, AND ANY EDEMA. SHE ALSO REPORTS THAT HER BLEEDING IS VERY LIGHT. SHE REPORTS HAVING A BOWEL MOVEMENT YESTERDAY. ENCOURAGED HER TO CALL [facility] IF SHE NEEDED ANYTHING AT ALL.
== END 2024-02-26 15:51 | disposition home or self-care (01) | DRG 770 ==
LOC: OBS 13:08 → BC 13:09 → OBS 13:18 → BC 13:19
PROVIDERS: Obstetrics & Gynecology; ADMIT Advanced Practice Midwife
PROC: 3E0P7VZ Introduction of Hormone into Female Reproductive, Via Natural or Artificial Opening (ICD-10-PCS; 2024-02-25)
PROC: 10D17ZZ Extraction of Products of Conception, Retained, Via Natural or Artificial Opening (ICD-10-PCS; principal; 2024-02-26 11:00)
DX: O02.1 Missed abortion (principal); O35.13X0 Maternal care for (suspected) chromosomal abnormality in fetus, Trisomy 21, not applicable or unspecified; Z3A.18 18 weeks gestation of pregnancy
CPT/HCPCS: 85025; 86850; 86900; 86901; 88305; A9270; J0690; J1100; J1171; J1885; J2250; J2371; J2405; J2704; J2765; J3010; J7120

== ENCOUNTER → 2024-03-10 | Outpatient (CLI) | payer OTHER ==
[2024-03-10 11:24] LABS: Source, Urine Clean Catch
[2024-03-10 11:28] LABS: BASOPHILS PERCENT AUTO 1 % (0-2); EOSINOPHILS ABSOLUTE AUTO 0.52 K/mm3 (0.00-0.68); EOSINOPHILS PERCENT AUTO 6 % (0-6); Hematocrit 39.5 % (33.0-51.0); Hemoglobin 13.3 g/dL (11.5-16.0); IMMATURE GRAN ABSOLUTE AUTO 0.05 K/mm3 (0.00-0.10); IMMATURE GRAN PERCENT AUTO 1 % (0-1); LYMPHOCYTES ABSOLUTE AUTO 2.52 K/mm3 (0.84-5.20); LYMPHOCYTES PERCENT AUTO 28 % (21-46); MONOCYTES ABSOLUTE AUTO 0.56 K/mm3 (0.16-1.47); MONOCYTES PERCENT AUTO 6 % (4-13); Mean Corpuscular HGB 29.8 pg (26.0-34.0); Mean Corpuscular HGB Conc 33.7 g/dL (31.5-36.5); Mean Corpuscular Volume 89 fL (80-100); Mean Platelet Volume 10.9 fL (9.1-12.4); NEUTROPHILS ABSOLUTE AUTO 5.11 K/mm3 (1.96-9.15); NEUTROPHILS PERCENT AUTO 58 % (41-73); Platelet Count 278 K/mm3 (150-400); RDW Coefficient Variation 13.4 % (11.7-14.2); RDW Standard Deviation 43.6 fL (35.1-46.3); Red Blood Cell Count 4.46 M/mm3 (3.80-5.20); White Blood Cell Count 8.86 K/mm3 (4.00-11.30)
[2024-03-10 11:36] LABS: Bacteria Rare /hpf; Squamous Epithelial Cells Few /hpf (Few)
[2024-03-10 11:37] LABS: Albumin, Blood 3.8 g/dL (3.4-5.0); Bilirubin, Total 0.3 mg/dL (0.1-1.0); Bun/Creatinine Ratio 9.3 (12.0-20.0); Calcium, Blood 9.1 mg/dL (8.5-10.1); Creatinine, Blood 0.97 mg/dL (0.40-1.00); Globulin, Blood 3.8 g/dL (2.2-4.0); Potassium, Blood 4.1 mmol/L (3.5-5.5); Total Protein, Blood 7.6 g/dL (6.4-8.2)
== END ==
LOC: LAB 11:21 → LAB SHORT 11:21
DX: R10.9 Unspecified abdominal pain (principal); Z87.442 Personal history of urinary calculi
CPT/HCPCS: 80053; 81015; 85025; 87086

== ENCOUNTER 2024-10-02 13:22 | Inpatient (IN) | payer OTHER ==
[~2024-10-02] VITALS: Ht 162.6 cm; Wt 63.5 kg
[2024-10-02] MEDS ORDERED: Ketorolac Tromethamine 15mg Vial IV ONE (13:50)
[2024-10-02 14:22] LABS: BASOPHILS ABSOLUTE AUTO 0.08 K/mm3 (0.00-0.23); BASOPHILS PERCENT AUTO 1 % (0-2); EOSINOPHILS ABSOLUTE AUTO 0.34 K/mm3 (0.00-0.68); EOSINOPHILS PERCENT AUTO 4 % (0-6); Hematocrit 43.4 % (33.0-51.0); Hemoglobin 14.4 g/dL (11.5-16.0); IMMATURE GRAN ABSOLUTE AUTO 0.01 K/mm3 (0.00-0.10); IMMATURE GRAN PERCENT AUTO 0 % (0-1); LYMPHOCYTES ABSOLUTE AUTO 1.86 K/mm3 (0.84-5.20); LYMPHOCYTES PERCENT AUTO 21 % (21-46); MONOCYTES ABSOLUTE AUTO 0.59 K/mm3 (0.16-1.47); MONOCYTES PERCENT AUTO 7 % (4-13); Mean Corpuscular HGB Conc 33.2 g/dL (31.5-36.5); Mean Corpuscular Volume 87 fL (80-100); NEUTROPHILS ABSOLUTE AUTO 5.98 K/mm3 (1.96-9.15); NEUTROPHILS PERCENT AUTO 68 % (41-73); NRBC ABSOLUTE 0.00 K/mm3 (0.00-0.02); NRBC Auto 0.0 /100 WBC (0.0-0.2); Platelet Count 257 K/mm3 (150-400); RDW Coefficient Variation 14.7 % (11.7-14.2); RDW Standard Deviation 47.2 fL (35.1-46.3)
[2024-10-02 14:39] LABS: Source, Urine Clean Catch
[2024-10-02] MEDS ORDERED: FentaNYL Citrate 50 MCG/ML 2 ML Injection IV ONE ×2 (14:40→15:45)
[2024-10-02 14:41] LABS: Alanine Aminotransfer (ALT/SGP 40.0 U/L (12-78); Albumin, Blood 4.0 g/dL (3.4-5.0); Albumin/Globulin Ratio 1.1 (0.8-1.8); Anion Gap 7.0 mmol/L (3-11); Aspartate Aminotrans (AST/SGOT 24.0 U/L (12-37); Bilirubin, Total 0.4 mg/dL (0.1-1.0); Blood Urea Nitrogen 9.0 mg/dL (8-24); CO2, Blood 25.0 mmol/L (21-32); Calcium, Blood 9.6 mg/dL (8.5-10.1); Chloride, Blood 111.0 mmol/L (98-108); Creatinine, Blood 0.95 mg/dL (0.40-1.00); Globulin, Blood 3.7 g/dL (2.2-4.0); Glucose, Blood 116.0 mg/dL (70-99); Potassium, Blood 3.6 mmol/L (3.5-5.5); Sodium, Blood 139.0 mmol/L (136-145); Total Protein, Blood 7.7 g/dL (6.4-8.2)
[2024-10-02 14:58] LABS: Bilirubin, Urine Neg (Neg); Color, Urine Brown (P-Yellow); Glucose Qualitative, Urine Neg (Neg); Ketones, Urine 1+ (Neg); Leukocyte Esterase, Urine 2+ (Neg); Protein, Urine 4+ (Neg); Specific Gravity, Urine 1.025 (1.003-1.022); Urobilinogen, Urine NORM (Normal)
[2024-10-02 15:11] LABS: Red Blood Cells, Urine TNTC /hpf (0-2); White Blood Cells, Urine TNTC /hpf (0-5)
[2024-10-02] MEDS ORDERED: CefTRIAXone Sodium 2,000 MG in NS 100 ML IV ONE (16:10)
[2024-10-02] MEDS ORDERED: Morphine Sulfate 4 MG/1 ML Injection IV PRN (16:50)
[2024-10-02 17:41] VITALS: BP 146/79
--- NOTE | 2024-10-02 18:02 | NUR ---
SHIFT SUMMARY/ARRIVAL PT FROM ER VIA WHEELCHAIR. AMBULATED TO RESTROOM TO VOID, DARK IN COLOR. SHARP PAIN IN ABDOMEN, MEDICATION PER EMAR. SPOKE WITH DR. ZALDIVAR. PT TO HAVE CLEAR LIQUIDS TONIGHT AND BECOME NPO AT MIDNIGHT. PT AGREEABLE WITH PLAN. SPOUSE AT BEDSIDE. PT TOELRATING CLEARS CURRENTLY. CALL LIGHT PROVIDED. PT ORIENTED TO UNIT.
[2024-10-02 19:16] VITALS: BP 125/86
[2024-10-02] MEDS ORDERED: Ketorolac Tromethamine 15mg Vial IV PRN (20:00)
[2024-10-02] MEDS ORDERED: Morphine Sulfate 4 MG/1 ML Injection IV ONE (22:00)
[2024-10-03] VITALS (14 sets, daily range): BP systolic 115–153; BP diastolic 68–93
[2024-10-03] MEDS ORDERED: HYDROmorphone HCl/Pf 1MG SYR IV PRN ×2 (01:20→10:30)
--- NOTE | 2024-10-03 04:21 | NUR ---
NOC SUMMARY- PT PAIN MANANGED. PT ABLE TO REST OFF AND ON. PT VOIDING. PT HAS BEEN NPO SINCE MN. CALL LIGHT IN REACH.
[2024-10-03 05:10] LABS: BASOPHILS ABSOLUTE AUTO 0.08 K/mm3 (0.00-0.23); BASOPHILS PERCENT AUTO 1 % (0-2); EOSINOPHILS ABSOLUTE AUTO 0.64 K/mm3 (0.00-0.68); EOSINOPHILS PERCENT AUTO 7 % (0-6); Hematocrit 40.9 % (33.0-51.0); Hemoglobin 13.7 g/dL (11.5-16.0); IMMATURE GRAN ABSOLUTE AUTO 0.02 K/mm3 (0.00-0.10); IMMATURE GRAN PERCENT AUTO 0 % (0-1); LYMPHOCYTES ABSOLUTE AUTO 2.99 K/mm3 (0.84-5.20); LYMPHOCYTES PERCENT AUTO 32 % (21-46); MONOCYTES ABSOLUTE AUTO 0.76 K/mm3 (0.16-1.47); MONOCYTES PERCENT AUTO 8 % (4-13); Mean Corpuscular HGB Conc 33.5 g/dL (31.5-36.5); Mean Corpuscular Volume 88 fL (80-100); NEUTROPHILS ABSOLUTE AUTO 4.94 K/mm3 (1.96-9.15); NEUTROPHILS PERCENT AUTO 52 % (41-73); NRBC ABSOLUTE 0.00 K/mm3 (0.00-0.02); NRBC Auto 0.0 /100 WBC (0.0-0.2); Platelet Count 188 K/mm3 (150-400); RDW Coefficient Variation 14.7 % (11.7-14.2); RDW Standard Deviation 47.7 fL (35.1-46.3)
[2024-10-03 05:33] LABS: Alanine Aminotransfer (ALT/SGP 35.0 U/L (12-78); Albumin, Blood 3.5 g/dL (3.4-5.0); Albumin/Globulin Ratio 1.1 (0.8-1.8); Anion Gap 6.0 mmol/L (3-11); Aspartate Aminotrans (AST/SGOT 23.0 U/L (12-37); Bilirubin, Total 0.5 mg/dL (0.1-1.0); Blood Urea Nitrogen 8.0 mg/dL (8-24); CO2, Blood 26.0 mmol/L (21-32); Calcium, Blood 9.0 mg/dL (8.5-10.1); Chloride, Blood 109.0 mmol/L (98-108); Creatinine, Blood 0.92 mg/dL (0.40-1.00); Globulin, Blood 3.3 g/dL (2.2-4.0); Glucose, Blood 96.0 mg/dL (70-99); Potassium, Blood 3.4 mmol/L (3.5-5.5); Sodium, Blood 138.0 mmol/L (136-145); Total Protein, Blood 6.8 g/dL (6.4-8.2)
[2024-10-03] MEDS ORDERED: NS 1,000 ML IV SCH (07:30)
[2024-10-03] MEDS ORDERED: FentaNYL Citrate 50 MCG/ML 2 ML Injection ONE (10:23)
[2024-10-03] MEDS ORDERED: Metoclopramide HCl 5MG / ML 2ML Vial IV PRN (10:30)
[2024-10-03] MEDS ORDERED: FentaNYL Citrate 50 MCG/ML 2 ML Injection IV PRN ×3 (10:30→10:35)
[2024-10-03] MEDS ORDERED: Midazolam HCl 1MG / ML 2ML Vial IV PRN (10:30)
[2024-10-03] MEDS ORDERED: Ondansetron HCl 2 MG / ML 2ML Vial IV PRN (10:35)
[2024-10-03] MEDS ORDERED: Dexmedetomidine HCL 200 MCG / 2 ML ONE (10:56)
[2024-10-03] MEDS ORDERED: Lidocaine 2% Jelly Uro-Jet ONE (10:56)
[2024-10-03] MEDS ORDERED: CefTRIAXone Sodium 1,000 MG in NS 100 ML IV ONE (11:25)
[2024-10-03] MEDS ORDERED: CefTRIAXone 1000 MG Vial ONE (11:38)
[2024-10-03] MEDS ORDERED: Ondansetron HCl 2 MG / ML 2ML Vial ONE (11:48)
[2024-10-03] MEDS ORDERED: Dexamethasone Sod Phos 10 MG/ML 1ML VIAL ONE (11:48)
[2024-10-03] MEDS ORDERED: Ketorolac Tromethamine 30mg Vial ONE (12:18)
[2024-10-03] MEDS ORDERED: CefTRIAXone Sodium 1,000 MG in NS 100 ML IV SCH (16:00)
[2024-10-03] MEDS ORDERED: OxyCODONE 5 mg/Acetamin 325 mg TABLET PO PRN (17:00)
--- NOTE | 2024-10-03 17:22 | NUR ---
SUMMARY NO ACUTE CHANGES SINCE ARRIVING TO UNIT FROM PACU. PT HAS VOIDED. MEDICATED ONCE THIS AFTERNOON POST PROCEDURE FOR PAIN, REPORTED PAIN IMPROVED FROM 7 TO 2 TO L SIDE. CALL LIGHT IN REACH.
--- NOTE | 2024-10-03 21:45 | NUR ---
ASSUMED CARE OF PT. PT RESTING IN BED.DENIES NEED.
[2024-10-04 00:10] VITALS: BP 112/75
[2024-10-04 04:10] VITALS: BP 111/68
[2024-10-04 04:31] LABS: BASOPHILS ABSOLUTE AUTO 0.03 K/mm3 (0.00-0.23); BASOPHILS PERCENT AUTO 0 % (0-2); EOSINOPHILS ABSOLUTE AUTO 0.04 K/mm3 (0.00-0.68); EOSINOPHILS PERCENT AUTO 0 % (0-6); Hematocrit 40.7 % (33.0-51.0); Hemoglobin 13.7 g/dL (11.5-16.0); IMMATURE GRAN ABSOLUTE AUTO 0.04 K/mm3 (0.00-0.10); IMMATURE GRAN PERCENT AUTO 0 % (0-1); LYMPHOCYTES ABSOLUTE AUTO 1.77 K/mm3 (0.84-5.20); LYMPHOCYTES PERCENT AUTO 13 % (21-46); MONOCYTES ABSOLUTE AUTO 1.00 K/mm3 (0.16-1.47); MONOCYTES PERCENT AUTO 7 % (4-13); Mean Corpuscular HGB Conc 33.7 g/dL (31.5-36.5); Mean Corpuscular Volume 88 fL (80-100); NEUTROPHILS ABSOLUTE AUTO 11.09 K/mm3 (1.96-9.15); NEUTROPHILS PERCENT AUTO 79 % (41-73); NRBC ABSOLUTE 0.00 K/mm3 (0.00-0.02); NRBC Auto 0.0 /100 WBC (0.0-0.2); Platelet Count 238 K/mm3 (150-400); RDW Coefficient Variation 14.6 % (11.7-14.2); RDW Standard Deviation 46.8 fL (35.1-46.3)
--- NOTE | 2024-10-04 04:59 | NUR ---
SUMMARY PT VERB PO PAIN MEDS EFFECTIVE WITH USE OF 2 PERCOCET.
[2024-10-04 07:40] VITALS: BP 116/80
--- NOTE | 2024-10-04 09:19 | NUR ---
DR BUSBY IN TO SEE PT.
[2024-10-04] MEDS ORDERED: Percocet 10-321 EACH PO (10:18)
[2024-10-04] MEDS ORDERED: CEFP200 PO (10:19)
[2024-10-04] MEDS ORDERED: IBUP400 PO (10:20)
--- NOTE | 2024-10-04 10:36 | NUR ---
discharged REVIEWED DC INSTRUCTIONIS W/PT; VERBALIZED UNDERSTANDING. PRESCRIPTIONS FAXED TO [facility], CONFIRMATION OF RECEIPT REC'D. PT LEFT UNIT IN WC W/POSSESSIONS AND DC PAPERWORK IN HAND TO RIDE WAITING OUTSIDE.
[2024-10-04 12:13] LABS: Alanine Aminotransfer (ALT/SGP 37.0 U/L (12-78); Albumin, Blood 3.5 g/dL (3.4-5.0); Albumin/Globulin Ratio 1.1 (0.8-1.8); Anion Gap 14.0 mmol/L (3-11); Aspartate Aminotrans (AST/SGOT 26.0 U/L (12-37); Bilirubin, Total 0.4 mg/dL (0.1-1.0); Blood Urea Nitrogen 13.0 mg/dL (8-24); CO2, Blood 25.0 mmol/L (21-32); Calcium, Blood 9.1 mg/dL (8.5-10.1); Chloride, Blood 104.0 mmol/L (98-108); Creatinine, Blood 1.07 mg/dL (0.40-1.00); Globulin, Blood 3.3 g/dL (2.2-4.0); Glucose, Blood 100.0 mg/dL (70-99); Magnesium, Blood 1.8 mg/dL (1.6-2.4); Potassium, Blood 3.7 mmol/L (3.5-5.5); Sodium, Blood 139.0 mmol/L (136-145); Total Protein, Blood 6.8 g/dL (6.4-8.2)
== END 2024-10-04 10:34 | disposition home or self-care (01) | DRG 661 ==
LOC: ER 13:22 → SURS 16:47
PROVIDERS: Hospitalist; Student in an Organized Health Care Education/Training Program; Urology; ADMIT Family Medicine
PROC: BT1F1ZZ Fluoroscopy of Left Kidney, Ureter and Bladder using Low Osmolar Contrast (ICD-10-PCS; 2024-10-03)
PROC: 0T778DZ Dilation of Left Ureter with Intraluminal Device, Via Natural or Artificial Opening Endoscopic (ICD-10-PCS; principal; 2024-10-03 11:00)
DX: N13.6 Pyonephrosis (principal); F41.9 Anxiety disorder, unspecified; F12.90 Cannabis use, unspecified, uncomplicated; F43.10 Post-traumatic stress disorder, unspecified; K44.9 Diaphragmatic hernia without obstruction or gangrene; K57.30 Diverticulosis of large intestine without perforation or abscess without bleeding; Z87.442 Personal history of urinary calculi; Z79.891 Long term (current) use of opiate analgesic; Z79.899 Other long term (current) drug therapy; Z80.1 Family history of malignant neoplasm of trachea, bronchus and lung; Z87.891 Personal history of nicotine dependence; Z82.49 Family history of ischemic heart disease and other diseases of the circulatory system
CPT/HCPCS: 36415; 74176; 80053; 81001; 83735; 84703; 85025; 87086; 94760; 96374; 96375; 96376; 99285-25; A9270; J0696; J1100; J1171; J1885; J2250; J2270; J2405; J2704; J3010; J7030; J7120

== ENCOUNTER 2024-10-22 12:16 | Inpatient (IN) | payer OTHER ==
[~2024-10-22] VITALS: Ht 162.6 cm; Wt 72.1 kg
[~2024-10-22 12:16] MED LIST changes: +CEFP200 PO; +Percocet 10-321 EACH PO
[2024-10-22] MEDS ORDERED: Ketorolac Tromethamine 15mg Vial IV ONE (13:25)
[2024-10-22] MEDS ORDERED: Ondansetron HCl 2 MG / ML 2ML Vial IV ONE (13:25)
[2024-10-22 13:50] LABS: BASOPHILS ABSOLUTE AUTO 0.09 K/mm3 (0.00-0.23); BASOPHILS PERCENT AUTO 1 % (0-2); EOSINOPHILS ABSOLUTE AUTO 0.34 K/mm3 (0.00-0.68); EOSINOPHILS PERCENT AUTO 4 % (0-6); Hematocrit 45.3 % (33.0-51.0); Hemoglobin 15.1 g/dL (11.5-16.0); IMMATURE GRAN ABSOLUTE AUTO 0.02 K/mm3 (0.00-0.10); IMMATURE GRAN PERCENT AUTO 0 % (0-1); LYMPHOCYTES ABSOLUTE AUTO 1.92 K/mm3 (0.84-5.20); LYMPHOCYTES PERCENT AUTO 20 % (21-46); MONOCYTES ABSOLUTE AUTO 0.63 K/mm3 (0.16-1.47); MONOCYTES PERCENT AUTO 6 % (4-13); Mean Corpuscular HGB Conc 33.3 g/dL (31.5-36.5); Mean Corpuscular Volume 88 fL (80-100); NEUTROPHILS ABSOLUTE AUTO 6.81 K/mm3 (1.96-9.15); NEUTROPHILS PERCENT AUTO 69 % (41-73); NRBC ABSOLUTE 0.00 K/mm3 (0.00-0.02); NRBC Auto 0.0 /100 WBC (0.0-0.2); Platelet Count 277 K/mm3 (150-400); RDW Coefficient Variation 13.5 % (11.7-14.2); RDW Standard Deviation 43.6 fL (35.1-46.3)
[2024-10-22] MEDS ORDERED: Morphine Sulfate 4 MG/1 ML Injection IV ONE (14:00)
[2024-10-22 14:09] LABS: Alanine Aminotransfer (ALT/SGP 35.0 U/L (12-78); Albumin, Blood 4.3 g/dL (3.4-5.0); Albumin/Globulin Ratio 1.2 (0.8-1.8); Anion Gap 8.0 mmol/L (3-11); Aspartate Aminotrans (AST/SGOT 25.0 U/L (12-37); Bilirubin, Total 0.4 mg/dL (0.1-1.0); Blood Urea Nitrogen 12.0 mg/dL (8-24); CO2, Blood 25.0 mmol/L (21-32); Calcium, Blood 9.8 mg/dL (8.5-10.1); Chloride, Blood 107.0 mmol/L (98-108); Creatinine, Blood 0.67 mg/dL (0.40-1.00); Globulin, Blood 3.6 g/dL (2.2-4.0); Glucose, Blood 104.0 mg/dL (70-99); Potassium, Blood 3.8 mmol/L (3.5-5.5); Sodium, Blood 136.0 mmol/L (136-145); Total Protein, Blood 7.9 g/dL (6.4-8.2)
[2024-10-22 15:24] LABS: Source, Urine Clean Catch
[2024-10-22 15:27] LABS: Bilirubin, Urine Neg (Neg); Color, Urine Amber (P-Yellow); Glucose Qualitative, Urine Neg (Neg); Ketones, Urine 1+ (Neg); Leukocyte Esterase, Urine 2+ (Neg); Protein, Urine 3+ (Neg); Specific Gravity, Urine 1.010 (1.003-1.022); Urobilinogen, Urine NORM (Normal)
[2024-10-22 15:40] LABS: Red Blood Cells, Urine 50-100 /hpf (0-2)
[2024-10-22] MEDS ORDERED: HYDROmorphone HCl/Pf 1MG SYR IV ONE (15:40)
[2024-10-22] MEDS ORDERED: CefTRIAXone Sodium 1,000 MG in NS 100 ML IV ONE (15:55)
[2024-10-22] MEDS ORDERED: Morphine Sulfate 4 MG/1 ML Injection IV PRN (17:55)
[2024-10-22] MEDS ORDERED: Ketorolac Tromethamine 15mg Vial IV PRN ×2 (18:00→22:15)
[2024-10-22 20:39] VITALS: BP 127/80
[2024-10-22] MEDS ORDERED: Heparin Sodium,Porcine 5,000 UNIT/0.5 ML SDV SC SCH (21:00)
--- NOTE | 2024-10-22 22:14 | NUR ---
NEW TP-ORDERS RECEIVED FROM THE ON-CALL HOSPITALIST MARY: D/C MORPHINE IV 2-4MG Q4PRN. NEW ORDER: DILAUDID IV 0.5-1MG Q2HRS PRN. CHANGE TORADOL IV 15MG Q6HRS PRN TO: TORADOL IV 15MG Q4HRS PRN. ENTERED TO [employer], SEE EMAR.
[2024-10-22] MEDS ORDERED: HYDROmorphone HCl/Pf 1MG SYR IV PRN (22:15)
[2024-10-22] MEDS ORDERED: Ondansetron HCl 2 MG / ML 2ML Vial IV PRN (23:45)
--- NOTE | 2024-10-23 02:49 | NUR ---
SHIFT SUMMARY/ ADMISSION NOTE: @2009 REPORT RECEIVED FROM ED NURSE DEON. @2029 PT ARRIVEDTO THE MEDICAL FLOOR RM#[id number]. PT ARRIVED IN A W/C AND TRANSFERRED BY SBA TO THE HOSPITAL BED. BY THE BEDSIDE. CHARGE NURSE OLGA COMPLETED THE ADMISSION ASSESSMENT, SKIN CHECK WITH THIS DRY YARD WORKER. PT BROUGHT ALL HER BELONINGS WITH HER. PT WAS CHANGED TO HOSPITAL GOWN, AND NON-SLIP SOCKS WERE GIVEN TO THE PT. PT WAS EDUCATED ON FALL PRECAUTIONS AND CALL LIGHT. PT IS A/OX4, INDEPENDENT WITHIN THE HOSPITAL ROOM, CONTINENT. STRAINER PLACED IN THE TOILET. NEW TELEPHONE ORDERS RECEIVED FROM THE ON-CALL HOSPITALIST NP. AMBRIZ (SEE PREVIOUS NOTE). PT IS HAVING SEVERE PAIN, FACE SCALE 10/10. PT RATES PAIN 7-8/10, CRYING, MOANING AND RESTLESS. MEDICATED WITH NEW ORDERS OF DILAUDID IV 1MG Q2HRS T/O THE NIGHT. PT REPORTS EFFECTIVE, PAIN DECREASING TO 3-4/10. PT REPORTS PAIN IS IN THE SUPRAPUBIC AREA, AND RADIATES TO THE LEFT FLANK AND BACK. TORADOL IV 15MG PRN AVAILABLE. WARM BLANKETS APPLIED TO LOWER ABDOMINAL AREA FOR COMFORT. BED AT THE LOWEST POSITION, CALL LIGHT W/I REACH. PT IS ABLE TO ADVOCATE FOR HERSELF AND USES THE CALL LIGHT APPROPRIATELY. SNACK PROVIDED AT HS. PT DENIES N/V.
[2024-10-23 04:00] VITALS: BP 97/52
[2024-10-23 05:03] LABS: BASOPHILS ABSOLUTE AUTO 0.11 K/mm3 (0.00-0.23); BASOPHILS PERCENT AUTO 1 % (0-2); EOSINOPHILS ABSOLUTE AUTO 0.60 K/mm3 (0.00-0.68); EOSINOPHILS PERCENT AUTO 7 % (0-6); Hematocrit 40.1 % (33.0-51.0); Hemoglobin 13.4 g/dL (11.5-16.0); IMMATURE GRAN ABSOLUTE AUTO 0.02 K/mm3 (0.00-0.10); IMMATURE GRAN PERCENT AUTO 0 % (0-1); LYMPHOCYTES ABSOLUTE AUTO 2.67 K/mm3 (0.84-5.20); LYMPHOCYTES PERCENT AUTO 31 % (21-46); MONOCYTES ABSOLUTE AUTO 0.71 K/mm3 (0.16-1.47); MONOCYTES PERCENT AUTO 8 % (4-13); Mean Corpuscular HGB Conc 33.4 g/dL (31.5-36.5); Mean Corpuscular Volume 88 fL (80-100); NEUTROPHILS ABSOLUTE AUTO 4.42 K/mm3 (1.96-9.15); NEUTROPHILS PERCENT AUTO 52 % (41-73); NRBC ABSOLUTE 0.00 K/mm3 (0.00-0.02); NRBC Auto 0.0 /100 WBC (0.0-0.2); Platelet Count 217 K/mm3 (150-400); RDW Coefficient Variation 13.7 % (11.7-14.2); RDW Standard Deviation 44.4 fL (35.1-46.3)
[2024-10-23 05:24] LABS: Anion Gap 8.0 mmol/L (3-11); Blood Urea Nitrogen 10.0 mg/dL (8-24); CO2, Blood 27.0 mmol/L (21-32); Calcium, Blood 8.9 mg/dL (8.5-10.1); Chloride, Blood 107.0 mmol/L (98-108); Creatinine, Blood 0.75 mg/dL (0.40-1.00); Glucose, Blood 84.0 mg/dL (70-99); Potassium, Blood 3.5 mmol/L (3.5-5.5); Sodium, Blood 138.0 mmol/L (136-145)
[2024-10-23] MEDS ORDERED: NS 250 ML IV PRN (05:50)
[2024-10-23 07:21] VITALS: BP 99/74
[2024-10-23] MEDS ORDERED: NS 1,000 ML IV SCH (07:55)
[2024-10-23 17:00] VITALS: BP 109/69
[2024-10-23] MEDS ORDERED: CefTRIAXone Sodium 1,000 MG in NS 100 ML IV SCH (18:00)
[2024-10-23 19:17] VITALS: BP 105/68
--- NOTE | 2024-10-24 04:35 | NUR ---
SHIFT SUMMARY; PATIENT AWAKE MOST OF THE NIGHT, MOANING, NEEDING PAIN MED Q2HR. NO NAUSEA, UP TO BR OFTEN. SEDIMENT IN STRAINED URINE. IVF/NS/125ML/HR ALL NIGHT.VSS.
[2024-10-24 04:52] VITALS: BP 108/65
[2024-10-24 05:58] LABS: BASOPHILS ABSOLUTE AUTO 0.06 K/mm3 (0.00-0.23); BASOPHILS PERCENT AUTO 1 % (0-2); EOSINOPHILS ABSOLUTE AUTO 0.50 K/mm3 (0.00-0.68); EOSINOPHILS PERCENT AUTO 7 % (0-6); Hematocrit 37.3 % (33.0-51.0); Hemoglobin 12.4 g/dL (11.5-16.0); IMMATURE GRAN ABSOLUTE AUTO 0.01 K/mm3 (0.00-0.10); IMMATURE GRAN PERCENT AUTO 0 % (0-1); LYMPHOCYTES ABSOLUTE AUTO 2.19 K/mm3 (0.84-5.20); LYMPHOCYTES PERCENT AUTO 31 % (21-46); MONOCYTES ABSOLUTE AUTO 0.51 K/mm3 (0.16-1.47); MONOCYTES PERCENT AUTO 7 % (4-13); Mean Corpuscular HGB Conc 33.2 g/dL (31.5-36.5); Mean Corpuscular Volume 90 fL (80-100); NEUTROPHILS ABSOLUTE AUTO 3.71 K/mm3 (1.96-9.15); NEUTROPHILS PERCENT AUTO 53 % (41-73); NRBC ABSOLUTE 0.00 K/mm3 (0.00-0.02); NRBC Auto 0.0 /100 WBC (0.0-0.2); Platelet Count 202 K/mm3 (150-400); RDW Coefficient Variation 13.5 % (11.7-14.2); RDW Standard Deviation 44.7 fL (35.1-46.3)
[2024-10-24 06:12] LABS: Anion Gap 8.0 mmol/L (3-11); Blood Urea Nitrogen 8.0 mg/dL (8-24); CO2, Blood 27.0 mmol/L (21-32); Calcium, Blood 8.2 mg/dL (8.5-10.1); Chloride, Blood 110.0 mmol/L (98-108); Creatinine, Blood 0.7 mg/dL (0.40-1.00); Glucose, Blood 91.0 mg/dL (70-99); Potassium, Blood 3.5 mmol/L (3.5-5.5); Sodium, Blood 141.0 mmol/L (136-145)
[2024-10-24 07:25] VITALS: BP 122/83
--- NOTE | 2024-10-24 16:02 | NUR ---
PATIENT INDEPENDENT WITH SELF CARE, ABLE TO EXPRESS NEEDS AND CONCERNS. PLAN IS FOR PATIENT TO HAVE LASER PROCEDURE TO HELP BREAK UP STONES FOR PATIENT. PAIN MEDS BEING REQUESTED EVERY 2 HOURS. PATIENT USUALLY TEARFUL UPON ENTRY. EDUCATED ON NEED TO DRINK MORE WATER. CALL LIGHT WITHIN REACH.
[2024-10-24 16:41] VITALS: BP 136/87
--- NOTE | 2024-10-24 18:55 | NUR ---
CALLED TO MD FOR EVALUATION OF PATIENTS PAIN MEDICATION. PATIENT ASKING FOR PAIN MED EVERY 2 HRS FOR PAIN 8-10 OUT OF 10. MEDICATION BRINGS LEVEL DOWN TO 3 BUT RETURNS TO 8-10 IN THE 2 HR WINDOW. CALLED TO SEE IF THERE WAS AN ALTERNATIVE TO GIVE PATIENT MORE RELIEF FROM PAIN. WAITING CALL BACK OR ORDERS
[2024-10-24 19:33] VITALS: BP 117/71
[2024-10-25 02:03] VITALS: BP 108/65
--- NOTE | 2024-10-25 03:49 | NUR ---
SHIFT SUMMARY PATIENT IS ALERT AND ORIENTED. PATIENT HAS HAD NO ACUTE EVENTS THIS SHIFT. VITAL SIGNS REVIEWED. PATIENT HAS HAD NO COMPLAINTS OF SOB, NAUSEA OR SOB. PATIENT HAS BEEN IND THIS SHIFT. IV FLUIDS INFUSED ORDERED. PATIENT HAS BEEN MEDICATED FREQUENTLY PER EMAR FOR PAIN WITH LITTLE EFFECTIVENESS. BED IN LOCKED AND LOWEST POSITION. CALL LIGHT IN PLACE.
[2024-10-25 05:02] LABS: BASOPHILS ABSOLUTE AUTO 0.06 K/mm3 (0.00-0.23); BASOPHILS PERCENT AUTO 1 % (0-2); EOSINOPHILS ABSOLUTE AUTO 0.39 K/mm3 (0.00-0.68); EOSINOPHILS PERCENT AUTO 6 % (0-6); Hematocrit 37.5 % (33.0-51.0); Hemoglobin 12.7 g/dL (11.5-16.0); IMMATURE GRAN ABSOLUTE AUTO 0.02 K/mm3 (0.00-0.10); IMMATURE GRAN PERCENT AUTO 0 % (0-1); LYMPHOCYTES ABSOLUTE AUTO 2.18 K/mm3 (0.84-5.20); LYMPHOCYTES PERCENT AUTO 34 % (21-46); MONOCYTES ABSOLUTE AUTO 0.59 K/mm3 (0.16-1.47); MONOCYTES PERCENT AUTO 9 % (4-13); Mean Corpuscular HGB Conc 33.9 g/dL (31.5-36.5); Mean Corpuscular Volume 88 fL (80-100); NEUTROPHILS ABSOLUTE AUTO 3.19 K/mm3 (1.96-9.15); NEUTROPHILS PERCENT AUTO 50 % (41-73); NRBC ABSOLUTE 0.00 K/mm3 (0.00-0.02); NRBC Auto 0.0 /100 WBC (0.0-0.2); Platelet Count 205 K/mm3 (150-400); RDW Coefficient Variation 13.5 % (11.7-14.2); RDW Standard Deviation 43.4 fL (35.1-46.3)
[2024-10-25 05:23] LABS: Anion Gap 8.0 mmol/L (3-11); Blood Urea Nitrogen 6.0 mg/dL (8-24); CO2, Blood 26.0 mmol/L (21-32); Calcium, Blood 8.2 mg/dL (8.5-10.1); Chloride, Blood 111.0 mmol/L (98-108); Creatinine, Blood 0.65 mg/dL (0.40-1.00); Glucose, Blood 90.0 mg/dL (70-99); Potassium, Blood 3.6 mmol/L (3.5-5.5); Sodium, Blood 141.0 mmol/L (136-145)
[2024-10-25 08:21] VITALS: BP 112/77
[2024-10-25] MEDS ORDERED: PRENATAL TABLE1 EAC2 PO ×2 (10:13)
[2024-10-25] MEDS ORDERED: Docusate Sodium/Senna 1 Tab PO PRN (11:45)
[2024-10-25] MEDS ORDERED: Polyethylene Glycol 3350 17 gm PO PRN (11:45)
[2024-10-25 15:33] VITALS: BP 127/78
--- NOTE | 2024-10-25 18:58 | NUR ---
NO ACUTE CHANGES. PT CONTINUES TO ENDORSE SEVERE STABBING PAIN IN LLQ RADIATING TO L FLANK. TREATED PER EMAR. PLAN FOR NPO AT MIDNIGHT-LITHOTRIPSY TOMORROW. INDEPENDENT IN THE ROOM
[2024-10-25 19:34] VITALS: BP 121/77
[2024-10-26] VITALS (18 sets, daily range): BP systolic 108–140; BP diastolic 70–91
--- NOTE | 2024-10-26 03:55 | NUR ---
SHIFT SUMMARY PATIENT IS ALERT AND ORIENTED. PATIENT HAS HAD NO ACUTE EVENTS THIS SHIFT. VITAL SIGNS REVIEWED. PATIENT HAS COMPLAINED OF PAIN AND MEDICATED PER EMAR. PATIENT HAS NO COMPLAINTS OF SOB, NAUSEA, VOMITTING THIS SHIFT. PATIENT HAS BEEN NPO FOR PROCEDURE PLANNED TODAY. BED IN LOCKED AND LOWEST POSITION. CALL LIGHT IN PLACE.
[2024-10-26 05:12] LABS: BASOPHILS ABSOLUTE AUTO 0.07 K/mm3 (0.00-0.23); BASOPHILS PERCENT AUTO 1 % (0-2); EOSINOPHILS ABSOLUTE AUTO 0.51 K/mm3 (0.00-0.68); EOSINOPHILS PERCENT AUTO 6 % (0-6); Hematocrit 39.0 % (33.0-51.0); Hemoglobin 13.1 g/dL (11.5-16.0); IMMATURE GRAN ABSOLUTE AUTO 0.01 K/mm3 (0.00-0.10); IMMATURE GRAN PERCENT AUTO 0 % (0-1); LYMPHOCYTES ABSOLUTE AUTO 2.34 K/mm3 (0.84-5.20); LYMPHOCYTES PERCENT AUTO 29 % (21-46); MONOCYTES ABSOLUTE AUTO 0.72 K/mm3 (0.16-1.47); MONOCYTES PERCENT AUTO 9 % (4-13); Mean Corpuscular HGB Conc 33.6 g/dL (31.5-36.5); Mean Corpuscular Volume 87 fL (80-100); NEUTROPHILS ABSOLUTE AUTO 4.30 K/mm3 (1.96-9.15); NEUTROPHILS PERCENT AUTO 54 % (41-73); NRBC ABSOLUTE 0.00 K/mm3 (0.00-0.02); NRBC Auto 0.0 /100 WBC (0.0-0.2); Platelet Count 209 K/mm3 (150-400); RDW Coefficient Variation 13.4 % (11.7-14.2); RDW Standard Deviation 42.8 fL (35.1-46.3)
[2024-10-26 05:52] LABS: Anion Gap 9.0 mmol/L (3-11); Blood Urea Nitrogen 7.0 mg/dL (8-24); CO2, Blood 26.0 mmol/L (21-32); Calcium, Blood 8.6 mg/dL (8.5-10.1); Chloride, Blood 108.0 mmol/L (98-108); Creatinine, Blood 0.71 mg/dL (0.40-1.00); Glucose, Blood 90.0 mg/dL (70-99); Potassium, Blood 3.8 mmol/L (3.5-5.5); Sodium, Blood 139.0 mmol/L (136-145)
[2024-10-26] MEDS ORDERED: FentaNYL Citrate 50 MCG/ML 2 ML Injection IV PRN ×2 (08:30→08:35)
[2024-10-26] MEDS ORDERED: HYDROmorphone HCl/Pf 1MG SYR IV PRN ×2 (08:30)
[2024-10-26] MEDS ORDERED: Labetalol HCL 5 MG/ML 4ML Injection (Single Dose) IV PRN (08:30)
[2024-10-26] MEDS ORDERED: Metoclopramide HCl 5MG / ML 2ML Vial IV PRN (08:35)
[2024-10-26] MEDS ORDERED: Ondansetron HCl 2 MG / ML 2ML Vial IV PRN (08:35)
[2024-10-26] MEDS ORDERED: Albuterol 2.5 MG/3 ML VIAL INH PRN (08:35)
[2024-10-26] MEDS ORDERED: ePHEDrine Sulfate 50 MG/ML 1ML Injection IV PRN (08:35)
[2024-10-26] MEDS ORDERED: CefOXitin Sodium 2,000 MG in NS 100 ML IV SCH (10:40)
[2024-10-26] MEDS ORDERED: Ketorolac Tromethamine 30mg Vial ONE (11:28)
[2024-10-26] MEDS ORDERED: Dexamethasone Sod Phos 10 MG/ML 1ML VIAL ONE (11:28)
[2024-10-26] MEDS ORDERED: FentaNYL Citrate 50 MCG/ML 2 ML Injection ONE ×2 (11:28→14:04)
[2024-10-26] MEDS ORDERED: Ondansetron HCl 2 MG / ML 2ML Vial ONE (11:28)
[2024-10-26] MEDS ORDERED: Sugammadex Sodium 200 MG/2ML SDV (100 MG/ML) ONE (12:18)
--- NOTE | 2024-10-26 13:03 | NUR ---
10/26/24 1303 Tabby Urias ISOVUE 30ML
--- NOTE | 2024-10-26 14:48 | NUR ---
PT ARRIVED TO ROOM FROM PACU. BEDSIDE REPORT OBTAINED FROM KECIA HUERTA. ALERT AND ORIENTED X4, C/O OF ABD PAIN AT THIS TIME.
--- NOTE | 2024-10-26 17:33 | NUR ---
PT CONTINUES TO ENDORSE SEVERE PAIN IN LLQ. PER PT, EXPERIENCING LESS PAIN WITH URINATION. TREATED PAIN PER EMAR. PT TO STAY TONIGHT FOR OBSERVATION. INDEPENDENT IN ROOM, CALLS APPROPRIATLEY.
[2024-10-27 02:45] VITALS: BP 97/65
--- NOTE | 2024-10-27 05:05 | NUR ---
SHIFT SUMMARY: Pt is admitted for hydronephrosis and is a full code. is alert and able to make needs known. ADLs have been IND. Pain has been managed with PRN medications when requested. Pain has ranged with 3/4 -9 depending. Iv to right hand is patent with dressing that is CDI.
[2024-10-27 07:52] VITALS: BP 104/66
[2024-10-27] MEDS ORDERED: OxyCODONE 5 mg/Acetamin 325 mg TABLET PO PRN (13:30)
--- NOTE | 2024-10-27 16:46 | NUR ---
NO ACUTE CHANGES THIS SHIFT. PT REPORTS SEVERE PAIN IN LOWER ABD. PT STARTED ON HIGHER DOSE PO PAIN MEDS IN HOPES OF BETTER PAIN CONTROL WITH LESS IV PAIN MEDICATIONS. PLAN FOR D/C TOMORROW IF PAIN CONTROLLED WITH PO MEDICATIONS. INDEPENDENT IN THE ROOM. CALLS APPROPRIATELY
[2024-10-27 19:08] VITALS: BP 128/84
--- NOTE | 2024-10-28 05:53 | NUR ---
SHIFT SUMMARY: Pt is admitted for hydronephrosis and is a full code. is alert and able to make needs known. ADLs have been IND. Pain has been managed with PRN medications when requested. Iv to right hand is patent with dressing that is CDI.
[2024-10-28 06:29] VITALS: BP 107/75
[2024-10-28 07:17] VITALS: BP 107/74
[2024-10-28] MEDS ORDERED: NITR100CA PO ×2 (11:14)
[2024-10-28] MEDS ORDERED: Percocet 5-3251 EACH PO (11:14)
[2024-10-28] MEDS ORDERED: PHENA200 PO ×2 (11:16)
--- NOTE | 2024-10-28 12:21 | NUR ---
Patient discharged home with spouse. All hard prescriptions and education discussed and given to patient. IV removed without difficulty and patient tolerated well. Patient transported to exit via wheelchair. All belongings in patient possession.
[2024-10-30 06:37] LABS: CALCULI MASS 8 mg
== END 2024-10-28 12:39 | disposition home or self-care (01) | DRG 661 ==
LOC: ER 12:16 → MEDS 16:52
PROVIDERS: Family Medicine; Physician Assistant; Urology; ADMIT Internal Medicine
PROC: 0TP98DZ Removal of Intraluminal Device from Ureter, Via Natural or Artificial Opening Endoscopic (ICD-10-PCS; 2024-10-26)
PROC: BT1FZZZ Fluoroscopy of Left Kidney, Ureter and Bladder (ICD-10-PCS; 2024-10-26)
PROC: 0TC78ZZ Extirpation of Matter from Left Ureter, Via Natural or Artificial Opening Endoscopic (ICD-10-PCS; principal; 2024-10-26 12:00)
PROC: 0T778DZ Dilation of Left Ureter with Intraluminal Device, Via Natural or Artificial Opening Endoscopic (ICD-10-PCS; 2024-10-26 12:00)
DX: N13.2 Hydronephrosis with renal and ureteral calculous obstruction (principal); F41.9 Anxiety disorder, unspecified; I95.9 Hypotension, unspecified; Z96.0 Presence of urogenital implants; Z87.891 Personal history of nicotine dependence
CPT/HCPCS: 36415; 74177; 80048; 80053; 81001; 82365; 83605; 85025; 87086; 96365-59; 96375; 99285-25; A9270; C1758; C2617; G0378; J0694; J0696; J1100; J1171; J1644; J1885; J2270; J2405; J2704; J3010; J7030; J7050; J7120; Q9967

== ENCOUNTER 2024-10-30 16:41 | Emergency (ER) | payer OTHER ==
[~2024-10-30] VITALS: Ht 162.6 cm; Wt 77.1 kg
[~2024-10-30 16:41] MED LIST changes: +NITR100CA PO; +PHENA200 PO; +PRENATAL TABLE1 EAC2 PO
[2024-10-30 16:46] VITALS: BP 120/90
[2024-10-30] MEDS ORDERED: Ketorolac Tromethamine 15mg Vial IV ONE (16:50)
[2024-10-30] MEDS ORDERED: Ondansetron HCl 2 MG / ML 2ML Vial IV ONE ×2 (16:50→17:35)
[2024-10-30 17:06] LABS: BASOPHILS ABSOLUTE AUTO 0.15 K/mm3 (0.00-0.23); BASOPHILS PERCENT AUTO 1 % (0-2); EOSINOPHILS ABSOLUTE AUTO 0.59 K/mm3 (0.00-0.68); EOSINOPHILS PERCENT AUTO 3 % (0-6); Hematocrit 45.0 % (33.0-51.0); Hemoglobin 15.2 g/dL (11.5-16.0); IMMATURE GRAN ABSOLUTE AUTO 0.05 K/mm3 (0.00-0.10); IMMATURE GRAN PERCENT AUTO 0 % (0-1); LYMPHOCYTES ABSOLUTE AUTO 4.58 K/mm3 (0.84-5.20); LYMPHOCYTES PERCENT AUTO 26 % (21-46); MONOCYTES ABSOLUTE AUTO 1.41 K/mm3 (0.16-1.47); MONOCYTES PERCENT AUTO 8 % (4-13); Mean Corpuscular HGB Conc 33.8 g/dL (31.5-36.5); Mean Corpuscular Volume 88 fL (80-100); NEUTROPHILS ABSOLUTE AUTO 10.86 K/mm3 (1.96-9.15); NEUTROPHILS PERCENT AUTO 62 % (41-73); NRBC ABSOLUTE 0.00 K/mm3 (0.00-0.02); NRBC Auto 0.0 /100 WBC (0.0-0.2); Platelet Count 360 K/mm3 (150-400); RDW Coefficient Variation 13.5 % (11.7-14.2); RDW Standard Deviation 43.9 fL (35.1-46.3)
[2024-10-30 17:30] LABS: Alanine Aminotransfer (ALT/SGP 45.0 U/L (12-78); Albumin, Blood 4.1 g/dL (3.4-5.0); Albumin/Globulin Ratio 1.1 (0.8-1.8); Anion Gap 9.0 mmol/L (3-11); Aspartate Aminotrans (AST/SGOT 23.0 U/L (12-37); Bilirubin, Total 0.5 mg/dL (0.1-1.0); Blood Urea Nitrogen 11.0 mg/dL (8-24); CO2, Blood 22.0 mmol/L (21-32); Calcium, Blood 9.7 mg/dL (8.5-10.1); Chloride, Blood 108.0 mmol/L (98-108); Creatinine, Blood 0.81 mg/dL (0.40-1.00); Globulin, Blood 3.6 g/dL (2.2-4.0); Glucose, Blood 143.0 mg/dL (70-99); Potassium, Blood 3.5 mmol/L (3.5-5.5); Sodium, Blood 135.0 mmol/L (136-145); Total Protein, Blood 7.7 g/dL (6.4-8.2)
[2024-10-30] MEDS ORDERED: HYDROmorphone HCl/Pf 1MG SYR IV ONE (17:30)
[2024-10-30 18:44] LABS: Source, Urine Clean Catch
[2024-10-30 19:01] LABS: Color, Urine Amber (P-Yellow); Glucose Qualitative, Urine Neg (Neg); Ketones, Urine 3+ (Neg); Leukocyte Esterase, Urine 2+ (Neg); Protein, Urine 3+ (Neg); Specific Gravity, Urine 1.010 (1.003-1.022); Urobilinogen, Urine 2+ (Normal)
[2024-10-30 19:16] LABS: Bilirubin, Urine 2+ (Neg)
[2024-10-30 19:17] LABS: Red Blood Cells, Urine 25-50 /hpf (0-2)
[2024-10-30] MEDS ORDERED: CEPH500 PO (19:19)
[2024-10-30] MEDS ORDERED: ACET500 PO (19:19)
[2024-10-30] MEDS ORDERED: IBUP600 PO (19:19)
== END 2024-10-30 19:39 | disposition home or self-care (01) ==
LOC: ER 16:41
PROVIDERS: Student in an Organized Health Care Education/Training Program
DX: N39.0 Urinary tract infection, site not specified (principal); F41.9 Anxiety disorder, unspecified; Z79.899 Other long term (current) drug therapy
CPT/HCPCS: 74177; 80053; 81001; 83690; 85025; 87086; 96374-59; 96375; 96376; 99284-25; A9270; J1171; J1885; J2405; Q9967

== ENCOUNTER 2024-12-23 19:31 | Inpatient (IN) | payer OTHER ==
[~2024-12-23] VITALS: Ht 162.6 cm; Wt 76.4 kg
[~2024-12-23 19:31] MED LIST changes: +ACET500 PO; +CEPH500 PO; +IBUP600 PO
[2024-12-23] MEDS ORDERED: NS 1,000 ML IV SCH ×2 (19:50→23:55)
[2024-12-23] MEDS ORDERED: Ondansetron HCl 2 MG / ML 2ML Vial IV ONE (19:55)
[2024-12-23] MEDS ORDERED: Ketorolac Tromethamine 30mg Vial IV ONE (19:55)
[2024-12-23 20:41] LABS: Alanine Aminotransfer (ALT/SGP 35.0 U/L (12-78); Albumin, Blood 4.2 g/dL (3.4-5.0); Albumin/Globulin Ratio 1.1 (0.8-1.8); Anion Gap 11.0 mmol/L (3-11); Aspartate Aminotrans (AST/SGOT 25.0 U/L (12-37); Bilirubin, Total 0.3 mg/dL (0.1-1.0); Blood Urea Nitrogen 8.0 mg/dL (8-24); CO2, Blood 24.0 mmol/L (21-32); Calcium, Blood 10.0 mg/dL (8.5-10.1); Chloride, Blood 107.0 mmol/L (98-108); Creatinine, Blood 0.72 mg/dL (0.40-1.00); Globulin, Blood 3.8 g/dL (2.2-4.0); Glucose, Blood 103.0 mg/dL (70-99); Potassium, Blood 3.9 mmol/L (3.5-5.5); Sodium, Blood 138.0 mmol/L (136-145); Total Protein, Blood 8.0 g/dL (6.4-8.2)
[2024-12-23 21:10] LABS: BASOPHILS ABSOLUTE AUTO 0.09 K/mm3 (0.00-0.23); BASOPHILS PERCENT AUTO 1 % (0-2); EOSINOPHILS ABSOLUTE AUTO 0.31 K/mm3 (0.00-0.68); EOSINOPHILS PERCENT AUTO 2 % (0-6); Hematocrit 42.4 % (33.0-51.0); Hemoglobin 14.9 g/dL (11.5-16.0); IMMATURE GRAN ABSOLUTE AUTO 0.06 K/mm3 (0.00-0.10); IMMATURE GRAN PERCENT AUTO 0 % (0-1); LYMPHOCYTES ABSOLUTE AUTO 2.48 K/mm3 (0.84-5.20); LYMPHOCYTES PERCENT AUTO 17 % (21-46); MONOCYTES ABSOLUTE AUTO 0.70 K/mm3 (0.16-1.47); MONOCYTES PERCENT AUTO 5 % (4-13); Mean Corpuscular HGB Conc 35.1 g/dL (31.5-36.5); Mean Corpuscular Volume 85 fL (80-100); NEUTROPHILS ABSOLUTE AUTO 10.71 K/mm3 (1.96-9.15); NEUTROPHILS PERCENT AUTO 75 % (41-73); NRBC ABSOLUTE 0.00 K/mm3 (0.00-0.02); NRBC Auto 0.0 /100 WBC (0.0-0.2); Platelet Count 224 K/mm3 (150-400); RDW Coefficient Variation 14.4 % (11.7-14.2); RDW Standard Deviation 44.9 fL (35.1-46.3)
[2024-12-23 22:55] LABS: Source, Urine Clean Catch
[2024-12-23 23:03] LABS: Bilirubin, Urine Neg (Neg); Glucose Qualitative, Urine Neg (Neg); Ketones, Urine Neg (Neg); Leukocyte Esterase, Urine 2+ (Neg); Protein, Urine 2+ (Neg); Specific Gravity, Urine 1.005 (1.003-1.022); Urobilinogen, Urine NORM (Normal)
[2024-12-23 23:10] LABS: Color, Urine Pale Yellow (P-Yellow)
[2024-12-23] MEDS ORDERED: LIDOCAINE HCL XX ONE (23:55)
[2024-12-23] MEDS ORDERED: NS XX ONE (23:55)
[2024-12-23] MEDS ORDERED: HYDROmorphone HCl/Pf 1MG SYR IV PRN (23:55)
[2024-12-24] VITALS (15 sets, daily range): BP systolic 111–149; BP diastolic 69–90
[2024-12-24] MEDS ORDERED: LIDOCAINE HCL XX ONE (00:40)
[2024-12-24] MEDS ORDERED: NS XX ONE (00:40)
[2024-12-24 00:51] LABS: Source, Urine Clean Catch
[2024-12-24] MEDS ORDERED: HYDROmorphone HCl/Pf 1MG SYR IV PRN ×3 (00:55→15:45)
[2024-12-24] MEDS ORDERED: Ondansetron HCl 2 MG / ML 2ML Vial IV PRN ×2 (01:00→15:45)
[2024-12-24] MEDS ORDERED: Naloxone HCl 0.4MG / ML 1ML Vial IV PRN (01:00)
[2024-12-24] MEDS ORDERED: FLU VACC TS2025-26(6MOS UP)/PF 45 MCG/0.5 ML SYRINGE IM SCH (01:00)
[2024-12-24 01:04] LABS: Bilirubin, Urine Neg (Neg); Glucose Qualitative, Urine Neg (Neg); Ketones, Urine Neg (Neg); Leukocyte Esterase, Urine 1+ (Neg); Protein, Urine 2+ (Neg); Specific Gravity, Urine 1.010 (1.003-1.022); Urobilinogen, Urine NORM (Normal)
[2024-12-24 01:20] LABS: Color, Urine Yellow (P-Yellow)
[2024-12-24 01:21] LABS: White Blood Cells, Urine 0-2 /hpf (0-5)
[2024-12-24] MEDS ORDERED: CefTRIAXone Sodium 1,000 MG in NS 100 ML IV SCH (01:52)
[2024-12-24] MEDS ORDERED: Ketorolac Tromethamine 15mg Vial IV PRN (01:55)
--- NOTE | 2024-12-24 03:30 | NUR ---
ARRIVAL TO SURGICAL UNIT ROOM 224 AT 0238. PT A/O X4, ABLE TO STAND AND TRANSFER TO BED. PT TEARFUL AND ENDORSES LEFT SIDE ABDOMINAL AND FLANK PAIN. PT ORIENTED TO ROOM AND CALL LIGHT. DENIES IGNITION SOURCES PRESENT, REVIEWED UNIT POLICIES AND PROCEDURES. CALL LIGHT IN REACH.
[2024-12-24 05:06] LABS: BASOPHILS ABSOLUTE AUTO 0.08 K/mm3 (0.00-0.23); BASOPHILS PERCENT AUTO 1 % (0-2); EOSINOPHILS ABSOLUTE AUTO 0.20 K/mm3 (0.00-0.68); EOSINOPHILS PERCENT AUTO 2 % (0-6); Hematocrit 38.8 % (33.0-51.0); Hemoglobin 13.2 g/dL (11.5-16.0); IMMATURE GRAN ABSOLUTE AUTO 0.05 K/mm3 (0.00-0.10); IMMATURE GRAN PERCENT AUTO 0 % (0-1); LYMPHOCYTES ABSOLUTE AUTO 2.83 K/mm3 (0.84-5.20); LYMPHOCYTES PERCENT AUTO 22 % (21-46); MONOCYTES ABSOLUTE AUTO 0.77 K/mm3 (0.16-1.47); MONOCYTES PERCENT AUTO 6 % (4-13); Mean Corpuscular HGB Conc 34.0 g/dL (31.5-36.5); Mean Corpuscular Volume 88 fL (80-100); NEUTROPHILS ABSOLUTE AUTO 9.02 K/mm3 (1.96-9.15); NEUTROPHILS PERCENT AUTO 70 % (41-73); NRBC ABSOLUTE 0.00 K/mm3 (0.00-0.02); NRBC Auto 0.0 /100 WBC (0.0-0.2); Platelet Count 188 K/mm3 (150-400); RDW Coefficient Variation 14.6 % (11.7-14.2); RDW Standard Deviation 47.3 fL (35.1-46.3)
[2024-12-24 05:28] LABS: Alanine Aminotransfer (ALT/SGP 27.0 U/L (12-78); Albumin, Blood 3.5 g/dL (3.4-5.0); Albumin/Globulin Ratio 1.1 (0.8-1.8); Anion Gap 9.0 mmol/L (3-11); Aspartate Aminotrans (AST/SGOT 18.0 U/L (12-37); Bilirubin, Total 0.3 mg/dL (0.1-1.0); Blood Urea Nitrogen 8.0 mg/dL (8-24); CO2, Blood 25.0 mmol/L (21-32); Calcium, Blood 8.6 mg/dL (8.5-10.1); Chloride, Blood 109.0 mmol/L (98-108); Creatinine, Blood 0.72 mg/dL (0.40-1.00); Globulin, Blood 3.1 g/dL (2.2-4.0); Glucose, Blood 113.0 mg/dL (70-99); Magnesium, Blood 2.1 mg/dL (1.6-2.4); Potassium, Blood 3.6 mmol/L (3.5-5.5); Sodium, Blood 139.0 mmol/L (136-145); Total Protein, Blood 6.6 g/dL (6.4-8.2)
--- NOTE | 2024-12-24 06:36 | NUR ---
SHIFT SUMMARY NOC. PT A/O X4, AMBULATES WELL WITH SBA. PT NPO ASIDE FROM SMALL SIP OF WATER FOR ORAL PAIN MEDICATION. PT NEEDED BREAKTHROUGH IV DILAUDID D/T NO RELIEF FROM ORAL FOR LEFT ABD/FLANK PAIN. PT VOIDING URINE. CONT BIOX IN PLACE, NO DESAT EVENTS. MAKES NEEDS KNOWN. CALL LIGHT IN REACH.
[2024-12-24] MEDS ORDERED: Lactobacil 2-S.Thermo-Bifido 1 1 Cap PO SCH (09:00)
--- NOTE | 2024-12-24 14:10 | NUR ---
URINE HCG TESTED IN DSU, NEGATIVE RESULT, SEE INTERVENTIONS.
[2024-12-24] MEDS ORDERED: FentaNYL Citrate 50 MCG/ML 2 ML Injection ONE (14:34)
[2024-12-24] MEDS ORDERED: Midazolam HCl 1MG / ML 2ML Vial ONE (14:34)
[2024-12-24] MEDS ORDERED: Rocuronium Bromide 10 MG/ML 5ML Injection IV ONE (14:34)
--- NOTE | 2024-12-24 14:49 | NUR ---
PATIENT TO DAYSURGERY @ 1432
[2024-12-24] MEDS ORDERED: Bupivacaine 0.5% HCl 5 MG/ML 30MLVIAL ONE (14:50)
--- NOTE | 2024-12-24 14:58 | NUR ---
PT TO PACU FOR PRE OP. VSS. PT A&OX4, BREATHING RA, ANXIOUS FOR SURGERY BUT OTHERWISE NO COMPLAINTS. PAS IN PLACE.
[2024-12-24] MEDS ORDERED: Dexamethasone Sod Phos 10 MG/ML 1ML VIAL ONE (15:31)
[2024-12-24] MEDS ORDERED: Ondansetron HCl 2 MG / ML 2ML Vial ONE (15:31)
[2024-12-24] MEDS ORDERED: FentaNYL Citrate 50 MCG/ML 2 ML Injection IV PRN ×2 (15:45)
[2024-12-24] MEDS ORDERED: Ketorolac Tromethamine 30mg Vial ONE (15:52)
--- NOTE | 2024-12-24 16:38 | NUR ---
POST-OP PATIENT IS BACK TO ROOM @1630.ON RA, VSS, POST-OPS CONTINUE. DENIES NAUSEA AND PAIN. MEDICATED IN OR WITH TORADOL @1600. TOLERATING PO INTAKE. ABLE TO MAKE NEEDS KNOWN. CALL LIGHT IN REACH.
[2024-12-25 00:17] VITALS: BP 116/81
[2024-12-25 04:19] VITALS: BP 106/72
[2024-12-25 04:45] LABS: BASOPHILS ABSOLUTE AUTO 0.03 K/mm3 (0.00-0.23); BASOPHILS PERCENT AUTO 0 % (0-2); EOSINOPHILS ABSOLUTE AUTO 0.00 K/mm3 (0.00-0.68); EOSINOPHILS PERCENT AUTO 0 % (0-6); Hematocrit 37.1 % (33.0-51.0); Hemoglobin 12.5 g/dL (11.5-16.0); IMMATURE GRAN ABSOLUTE AUTO 0.07 K/mm3 (0.00-0.10); IMMATURE GRAN PERCENT AUTO 1 % (0-1); LYMPHOCYTES ABSOLUTE AUTO 1.24 K/mm3 (0.84-5.20); LYMPHOCYTES PERCENT AUTO 10 % (21-46); MONOCYTES ABSOLUTE AUTO 0.57 K/mm3 (0.16-1.47); MONOCYTES PERCENT AUTO 5 % (4-13); Mean Corpuscular HGB Conc 33.7 g/dL (31.5-36.5); Mean Corpuscular Volume 88 fL (80-100); NEUTROPHILS ABSOLUTE AUTO 10.45 K/mm3 (1.96-9.15); NEUTROPHILS PERCENT AUTO 85 % (41-73); NRBC ABSOLUTE 0.00 K/mm3 (0.00-0.02); NRBC Auto 0.0 /100 WBC (0.0-0.2); Platelet Count 180 K/mm3 (150-400); RDW Coefficient Variation 14.4 % (11.7-14.2); RDW Standard Deviation 46.0 fL (35.1-46.3)
[2024-12-25 05:07] LABS: Alanine Aminotransfer (ALT/SGP 33.0 U/L (12-78); Albumin, Blood 3.3 g/dL (3.4-5.0); Albumin/Globulin Ratio 1.1 (0.8-1.8); Anion Gap 10.0 mmol/L (3-11); Aspartate Aminotrans (AST/SGOT 23.0 U/L (12-37); Bilirubin, Total 0.6 mg/dL (0.1-1.0); Blood Urea Nitrogen 9.0 mg/dL (8-24); CO2, Blood 23.0 mmol/L (21-32); Calcium, Blood 8.8 mg/dL (8.5-10.1); Chloride, Blood 108.0 mmol/L (98-108); Creatinine, Blood 0.82 mg/dL (0.40-1.00); Globulin, Blood 3.0 g/dL (2.2-4.0); Glucose, Blood 120.0 mg/dL (70-99); Potassium, Blood 3.8 mmol/L (3.5-5.5); Sodium, Blood 137.0 mmol/L (136-145); Total Protein, Blood 6.3 g/dL (6.4-8.2)
[2024-12-25 07:25] VITALS: BP 112/74
--- NOTE | 2024-12-25 14:05 | NUR ---
SHIFT SUMMARY PT IS A/OX4. PT WAS EMOTIONAL TODAY AFTER SPEAKING WITH HER SPOUSE. DURING THIS TIME PT DENIED THE NEED FOR PAIN MEDS WHEN ASKED. PLAN IS FOR DC IN AM W/ ADEQUATE PAIN CONTROL. PT DECLINED PO PAIN MEDS WHEN DUE AND SEVERAL TIMES AFTER BEING OFFERED. PT THEN REQUESTED IV PAIN MEDICATION. PT AWARE PO MEDICATION IS REQUIRED FOR DC. PT IS TOLERATING PO INTAKE. DENIES N/V. PT IS IND IN ROOM AND REQUIRES NO ASSISTANCE COMPLETING ADLS. PT IS VOIDING APPROP. BLOOD IN URINE, UROLOGY STATES TO BE EXPECTED. REPORT GIVEN TO ELOISA MCDONNELL. IV PATENT. CALL LIGHT IN REACH, BED IN LOWEST POSITION.
[2024-12-25 14:29] VITALS: BP 125/81
--- NOTE | 2024-12-25 17:14 | NUR ---
PT C/O 12/30 PAIN AND CRYING THIS AFTERNOON, TORADOL AND PO DILAUDID GIVEN, CURRENTLY RATES PAIN AT 10, AMBULATING DOWN THE HALLS, TOLERATING WELL, APPEARS TO BE IN NO DISTRESS, REPORTS CONT. TO VOID PINK TINGED URINE, NO OTHER CHANGES THIS SHIFT.
[2024-12-25 20:05] VITALS: BP 116/72
[2024-12-26 04:11] LABS: BASOPHILS ABSOLUTE AUTO 0.05 K/mm3 (0.00-0.23); BASOPHILS PERCENT AUTO 1 % (0-2); EOSINOPHILS ABSOLUTE AUTO 0.26 K/mm3 (0.00-0.68); EOSINOPHILS PERCENT AUTO 3 % (0-6); Hematocrit 36.1 % (33.0-51.0); Hemoglobin 12.4 g/dL (11.5-16.0); IMMATURE GRAN ABSOLUTE AUTO 0.03 K/mm3 (0.00-0.10); IMMATURE GRAN PERCENT AUTO 0 % (0-1); LYMPHOCYTES ABSOLUTE AUTO 3.00 K/mm3 (0.84-5.20); LYMPHOCYTES PERCENT AUTO 32 % (21-46); MONOCYTES ABSOLUTE AUTO 0.74 K/mm3 (0.16-1.47); MONOCYTES PERCENT AUTO 8 % (4-13); Mean Corpuscular HGB Conc 34.3 g/dL (31.5-36.5); Mean Corpuscular Volume 89 fL (80-100); NEUTROPHILS ABSOLUTE AUTO 5.41 K/mm3 (1.96-9.15); NEUTROPHILS PERCENT AUTO 57 % (41-73); NRBC ABSOLUTE 0.00 K/mm3 (0.00-0.02); NRBC Auto 0.0 /100 WBC (0.0-0.2); Platelet Count 166 K/mm3 (150-400); RDW Coefficient Variation 14.4 % (11.7-14.2); RDW Standard Deviation 47.0 fL (35.1-46.3)
[2024-12-26 04:34] LABS: Alanine Aminotransfer (ALT/SGP 42.0 U/L (12-78); Albumin, Blood 3.2 g/dL (3.4-5.0); Albumin/Globulin Ratio 1.1 (0.8-1.8); Anion Gap 7.0 mmol/L (3-11); Aspartate Aminotrans (AST/SGOT 26.0 U/L (12-37); Bilirubin, Total 0.4 mg/dL (0.1-1.0); Blood Urea Nitrogen 14.0 mg/dL (8-24); CO2, Blood 26.0 mmol/L (21-32); Calcium, Blood 8.6 mg/dL (8.5-10.1); Chloride, Blood 109.0 mmol/L (98-108); Creatinine, Blood 0.88 mg/dL (0.40-1.00); Globulin, Blood 2.9 g/dL (2.2-4.0); Glucose, Blood 102.0 mg/dL (70-99); Potassium, Blood 3.6 mmol/L (3.5-5.5); Sodium, Blood 138.0 mmol/L (136-145); Total Protein, Blood 6.1 g/dL (6.4-8.2)
[2024-12-26 05:03] VITALS: BP 108/72
--- NOTE | 2024-12-26 07:14 | NUR ---
SHIFT SUMMARY POD 2 CYSTOSCOPY W/STENT PLACEMENT. A&O X4. PT C/O INCREASED PAIN THIS SHIFT. MEDICATION FREQUENCY CHANGED TO EVERY 4 HOURS PER FREIGHT FORWARDER PHYSICIAN. PT INDEPENDENT IN ROOM. PT URINATING PINK TINGED URINE. CONTINUOUS PULSE OX IN PLACE SPO2 95%. PT RESTING IN BED, RESPIRATIONS EVEN AND UNLABORED, NO DISTRESS NOTED. CALL LIGHT WITHIN REACH.
[2024-12-26 07:16] VITALS: BP 123/82
[2024-12-26 13:57] VITALS: BP 116/80
[2024-12-26] MEDS ORDERED: Acetaminophen650 M1 PO (14:08)
[2024-12-26] MEDS ORDERED: HYDMOR2 PO (14:09)
[2024-12-26] MEDS ORDERED: BACTRIM DS TAB1 EAC6 PO (14:09)
[2024-12-26] MEDS ORDERED: IBUP800 PO (14:10)
[2024-12-26] MEDS ORDERED: TAMS.4ER PO (14:10)
--- NOTE | 2024-12-26 14:25 | NUR ---
DISCHARGE NOTE POD2 BILAT URETHRAL STENT PLACEMENT PT IS A/OX4. PT REPORTING PAIN IS MANAGED W/ CURRENT PAIN MED REGIMINE. PT DENIES N/V. MEDICATED PER EMAR. PT IS IND IN ROOM. TOLERATING INTAKE, VOIDING WELL. PLAN IS FOR PT TO F/U W/ UROLOGY FOR STONE REMOVAL. TOLERATING PO INTAKE. LEFT W/ ALL PERSONAL BELONGINGS. ESCORTED OUT VIA AT 1425.
== END 2024-12-26 14:34 | disposition home or self-care (01) | DRG 661 ==
LOC: ER 19:31 → ERHOLD 12-24 00:53 → SURS 12-24 00:53
PROVIDERS: Emergency Medicine; Family Medicine; Student in an Organized Health Care Education/Training Program; Urology; ADMIT Student in an Organized Health Care Education/Training Program
PROC: BT14ZZZ Fluoroscopy of Kidneys, Ureters and Bladder (ICD-10-PCS; 2024-12-24)
PROC: 0T788DZ Dilation of Bilateral Ureters with Intraluminal Device, Via Natural or Artificial Opening Endoscopic (ICD-10-PCS; principal; 2024-12-24 12:45)
DX: N13.6 Pyonephrosis (principal); F41.9 Anxiety disorder, unspecified; K44.9 Diaphragmatic hernia without obstruction or gangrene; F43.10 Post-traumatic stress disorder, unspecified; Z87.19 Personal history of other diseases of the digestive system; N83.201 Unspecified ovarian cyst, right side; K76.89 Other specified diseases of liver; Z87.442 Personal history of urinary calculi
CPT/HCPCS: 36415; 74177; 80053; 81001; 83690; 83735; 85025; 87086; 94762; 96361; 96374; 96375; 99285-25; A9270; C1758; C1769; C2617; J0696; J1100; J1171; J1885; J2250; J2405; J2704; J3010; J7030; J7120; Q9967

== ENCOUNTER 2025-01-04 20:11 | Emergency (ER) | payer OTHER ==
[~2025-01-04] VITALS: Ht 162.6 cm; Wt 72.6 kg
[~2025-01-04 20:11] MED LIST changes: +Acetaminophen650 M1 PO; +BACTRIM DS TAB1 EAC6 PO; +HYDMOR2 PO
[2025-01-04] MEDS ORDERED: Ketorolac Tromethamine 15mg Vial IV ONE (20:30)
[2025-01-04] MEDS ORDERED: NS 1,000 ML IV SCH (20:30)
[2025-01-04 21:00] LABS: BASOPHILS ABSOLUTE AUTO 0.12 K/mm3 (0.00-0.23); BASOPHILS PERCENT AUTO 1 % (0-2); EOSINOPHILS ABSOLUTE AUTO 0.35 K/mm3 (0.00-0.68); EOSINOPHILS PERCENT AUTO 3 % (0-6); Hematocrit 41.2 % (33.0-51.0); Hemoglobin 14.2 g/dL (11.5-16.0); IMMATURE GRAN ABSOLUTE AUTO 0.03 K/mm3 (0.00-0.10); IMMATURE GRAN PERCENT AUTO 0 % (0-1); LYMPHOCYTES ABSOLUTE AUTO 2.40 K/mm3 (0.84-5.20); LYMPHOCYTES PERCENT AUTO 21 % (21-46); MONOCYTES ABSOLUTE AUTO 0.73 K/mm3 (0.16-1.47); MONOCYTES PERCENT AUTO 6 % (4-13); Mean Corpuscular HGB Conc 34.5 g/dL (31.5-36.5); Mean Corpuscular Volume 88 fL (80-100); NEUTROPHILS ABSOLUTE AUTO 7.94 K/mm3 (1.96-9.15); NEUTROPHILS PERCENT AUTO 69 % (41-73); NRBC ABSOLUTE 0.00 K/mm3 (0.00-0.02); NRBC Auto 0.0 /100 WBC (0.0-0.2); Platelet Count 279 K/mm3 (150-400); RDW Coefficient Variation 14.2 % (11.7-14.2); RDW Standard Deviation 46.2 fL (35.1-46.3)
[2025-01-04 21:19] LABS: Alanine Aminotransfer (ALT/SGP 61.0 U/L (12-78); Albumin, Blood 4.1 g/dL (3.4-5.0); Albumin/Globulin Ratio 1.2 (0.8-1.8); Anion Gap 6.0 mmol/L (3-11); Aspartate Aminotrans (AST/SGOT 35.0 U/L (12-37); Bilirubin, Total 0.4 mg/dL (0.1-1.0); Blood Urea Nitrogen 14.0 mg/dL (8-24); CO2, Blood 26.0 mmol/L (21-32); Calcium, Blood 10.0 mg/dL (8.5-10.1); Chloride, Blood 109.0 mmol/L (98-108); Creatinine, Blood 0.78 mg/dL (0.40-1.00); Globulin, Blood 3.4 g/dL (2.2-4.0); Glucose, Blood 100.0 mg/dL (70-99); Potassium, Blood 3.7 mmol/L (3.5-5.5); Sodium, Blood 137.0 mmol/L (136-145); Total Protein, Blood 7.5 g/dL (6.4-8.2)
[2025-01-04] MEDS ORDERED: Ondansetron HCl 2 MG / ML 2ML Vial IV ONE (21:25)
[2025-01-04] MEDS ORDERED: HYDROmorphone HCl/Pf 1MG SYR IV ONE ×2 (21:35→22:35)
[2025-01-04 22:38] LABS: Source, Urine Clean Catch
[2025-01-04 22:45] LABS: Bilirubin, Urine Neg (Neg); Glucose Qualitative, Urine Neg (Neg); Ketones, Urine 1+ (Neg); Leukocyte Esterase, Urine 3+ (Neg); Protein, Urine 4+ (Neg); Specific Gravity, Urine 1.020 (1.003-1.022); Urobilinogen, Urine NORM (Normal)
[2025-01-04 22:52] LABS: Color, Urine Red (P-Yellow)
[2025-01-04 22:54] LABS: Red Blood Cells, Urine TNTC /hpf (0-2)
[2025-01-04] MEDS ORDERED: RX Prepack 6 Tabs Oxycodone 5mg UD ONE (23:40)
[2025-01-04] MEDS ORDERED: CEPH500 PO (23:44)
[2025-01-04 23:54] VITALS: BP 124/68
== END 2025-01-04 23:59 | disposition home or self-care (01) ==
LOC: ER 20:11
PROVIDERS: Student in an Organized Health Care Education/Training Program
DX: N30.00 Acute cystitis without hematuria (principal); Z96.0 Presence of urogenital implants; Z87.442 Personal history of urinary calculi; Z79.899 Other long term (current) drug therapy
CPT/HCPCS: 74176; 80053; 81001; 83690; 85025; 87086; 96374; 96375; 96376; 99284-25; A9270; J1171; J1885; J2405; J7030

== ENCOUNTER 2025-01-16 03:42 | Inpatient (IN) | payer OTHER ==
[~2025-01-16] VITALS: Ht 162.6 cm; Wt 70.6 kg
[2025-01-16] MEDS ORDERED: Ketorolac Tromethamine 15mg Vial IV ONE (04:20)
[2025-01-16] MEDS ORDERED: Ondansetron HCl 2 MG / ML 2ML Vial IV ONE ×2 (04:20→07:40)
[2025-01-16] MEDS ORDERED: HYDROmorphone HCl/Pf 1MG SYR IV ONE ×3 (04:20→06:30)
[2025-01-16 04:26] LABS: BASOPHILS ABSOLUTE AUTO 0.10 K/mm3 (0.00-0.23); BASOPHILS PERCENT AUTO 1 % (0-2); EOSINOPHILS ABSOLUTE AUTO 0.73 K/mm3 (0.00-0.68); EOSINOPHILS PERCENT AUTO 7 % (0-6); Hematocrit 40.1 % (33.0-51.0); Hemoglobin 13.5 g/dL (11.5-16.0); IMMATURE GRAN ABSOLUTE AUTO 0.03 K/mm3 (0.00-0.10); IMMATURE GRAN PERCENT AUTO 0 % (0-1); LYMPHOCYTES ABSOLUTE AUTO 2.33 K/mm3 (0.84-5.20); LYMPHOCYTES PERCENT AUTO 24 % (21-46); MONOCYTES ABSOLUTE AUTO 0.83 K/mm3 (0.16-1.47); MONOCYTES PERCENT AUTO 8 % (4-13); Mean Corpuscular HGB Conc 33.7 g/dL (31.5-36.5); Mean Corpuscular Volume 90 fL (80-100); NEUTROPHILS ABSOLUTE AUTO 5.86 K/mm3 (1.96-9.15); NEUTROPHILS PERCENT AUTO 59 % (41-73); NRBC ABSOLUTE 0.00 K/mm3 (0.00-0.02); NRBC Auto 0.0 /100 WBC (0.0-0.2); Platelet Count 275 K/mm3 (150-400); RDW Coefficient Variation 13.6 % (11.7-14.2); RDW Standard Deviation 44.4 fL (35.1-46.3)
[2025-01-16 04:51] LABS: Alanine Aminotransfer (ALT/SGP 24.0 U/L (12-78); Albumin, Blood 3.6 g/dL (3.4-5.0); Albumin/Globulin Ratio 1.1 (0.8-1.8); Anion Gap 8.0 mmol/L (3-11); Aspartate Aminotrans (AST/SGOT 15.0 U/L (12-37); Bilirubin, Total 0.2 mg/dL (0.1-1.0); Blood Urea Nitrogen 17.0 mg/dL (8-24); CO2, Blood 25.0 mmol/L (21-32); Calcium, Blood 9.7 mg/dL (8.5-10.1); Chloride, Blood 112.0 mmol/L (98-108); Creatinine, Blood 0.76 mg/dL (0.40-1.00); Globulin, Blood 3.3 g/dL (2.2-4.0); Glucose, Blood 109.0 mg/dL (70-99); Magnesium, Blood 2.0 mg/dL (1.6-2.4); Potassium, Blood 3.8 mmol/L (3.5-5.5); Sodium, Blood 141.0 mmol/L (136-145); Total Protein, Blood 6.9 g/dL (6.4-8.2)
[2025-01-16 05:05] LABS: Source, Urine Clean Catch
[2025-01-16 05:23] LABS: Bilirubin, Urine Neg (Neg); Color, Urine Amber (P-Yellow); Glucose Qualitative, Urine Neg (Neg); Ketones, Urine Neg (Neg); Leukocyte Esterase, Urine 3+ (Neg); Protein, Urine 4+ (Neg); Specific Gravity, Urine 1.015 (1.003-1.022); Urobilinogen, Urine NORM (Normal)
[2025-01-16 05:41] LABS: Red Blood Cells, Urine TNTC /hpf (0-2)
[2025-01-16] MEDS ORDERED: CefTRIAXone Sodium 1,000 MG in NS 100 ML IV ONE (06:30)
[2025-01-16] MEDS ORDERED: HYDROmorphone HCl/Pf 1MG SYR IV PRN ×2 (07:10→12:50)
[2025-01-16] MEDS ORDERED: Ondansetron HCl 2 MG / ML 2ML Vial IV PRN (08:40)
[2025-01-16] MEDS ORDERED: Magnesium Hydroxide Conc 10 ML UDC PO PRN (08:40)
[2025-01-16] MEDS ORDERED: FLU VACC TS2025-26(6MOS UP)/PF 45 MCG/0.5 ML SYRINGE IM SCH (08:40)
[2025-01-16] MEDS ORDERED: Lactobacil 2-S.Thermo-Bifido 1 1 Cap PO SCH (09:00)
[2025-01-16 11:35] VITALS: BP 122/82
--- NOTE | 2025-01-16 11:35 | NUR ---
PT ARRIVED TO ROOM 352 FROM ER. FAMILY AT BEDSIDE.
[2025-01-16 15:06] VITALS: BP 119/77
--- NOTE | 2025-01-16 17:38 | NUR ---
SHIFT SUMMARY PT IS A/OX4. INDEPENDENT IN THE ROOM. PT REPORTING ABDOMINAL PAIN, MEDICATED PER MAR. URINE IS PINK/RED TINGED. URINE STRAINED. UROLOGY CONSULTED. PT IS PLEASANT AND COOPERATIVE WITH CARE AND CALLS APPROPRIATELY USING THE CALL LIGHT.
[2025-01-16 20:27] VITALS: BP 114/90
--- NOTE | 2025-01-17 03:55 | NUR ---
SHIFT SUMMARY PATIENT IS ALERT AND ORIENTED. PATIENT HAS HAD NO ACUTE EVENTS THIS SHIFT. PATIENT HAS BEEN PLEASENT AND COOPERATIVE WITH CARE. PATIENT HAS COMPLAINED OF PAIN AND HAS BEEN MEDICATED PER EMAR. PATIENT HAS COMPLAINED OF NAUSEA AND VOMITTING THIS SHIFT AND MEDICATED PER EMAR. PATIENT HAS BEEN IND IN THE ROOM THIS SHIFT. VITAL SIGNS REVIEWED. BED IN LOCKED AND LOWEST POSITION. CALL LIGHT IN PLACE.
[2025-01-17 05:38] VITALS: BP 112/71
[2025-01-17 05:49] LABS: BASOPHILS ABSOLUTE AUTO 0.07 K/mm3 (0.00-0.23); BASOPHILS PERCENT AUTO 1 % (0-2); EOSINOPHILS ABSOLUTE AUTO 0.48 K/mm3 (0.00-0.68); EOSINOPHILS PERCENT AUTO 5 % (0-6); Hematocrit 41.3 % (33.0-51.0); Hemoglobin 13.6 g/dL (11.5-16.0); IMMATURE GRAN ABSOLUTE AUTO 0.02 K/mm3 (0.00-0.10); IMMATURE GRAN PERCENT AUTO 0 % (0-1); LYMPHOCYTES ABSOLUTE AUTO 1.52 K/mm3 (0.84-5.20); LYMPHOCYTES PERCENT AUTO 17 % (21-46); MONOCYTES ABSOLUTE AUTO 0.67 K/mm3 (0.16-1.47); MONOCYTES PERCENT AUTO 8 % (4-13); Mean Corpuscular HGB Conc 32.9 g/dL (31.5-36.5); Mean Corpuscular Volume 90 fL (80-100); NEUTROPHILS ABSOLUTE AUTO 6.05 K/mm3 (1.96-9.15); NEUTROPHILS PERCENT AUTO 69 % (41-73); NRBC ABSOLUTE 0.00 K/mm3 (0.00-0.02); NRBC Auto 0.0 /100 WBC (0.0-0.2); Platelet Count 240 K/mm3 (150-400); RDW Coefficient Variation 13.2 % (11.7-14.2); RDW Standard Deviation 44.2 fL (35.1-46.3)
[2025-01-17] MEDS ORDERED: NS 250 ML IV PRN (05:50)
[2025-01-17 06:12] LABS: Alanine Aminotransfer (ALT/SGP 25.0 U/L (12-78); Albumin, Blood 3.7 g/dL (3.4-5.0); Albumin/Globulin Ratio 1.1 (0.8-1.8); Anion Gap 6.0 mmol/L (3-11); Aspartate Aminotrans (AST/SGOT 16.0 U/L (12-37); Bilirubin, Total 0.4 mg/dL (0.1-1.0); Blood Urea Nitrogen 11.0 mg/dL (8-24); CO2, Blood 29.0 mmol/L (21-32); Calcium, Blood 9.6 mg/dL (8.5-10.1); Chloride, Blood 109.0 mmol/L (98-108); Creatinine, Blood 0.87 mg/dL (0.40-1.00); Globulin, Blood 3.3 g/dL (2.2-4.0); Glucose, Blood 105.0 mg/dL (70-99); Potassium, Blood 4.0 mmol/L (3.5-5.5); Sodium, Blood 140.0 mmol/L (136-145); Total Protein, Blood 7.0 g/dL (6.4-8.2)
[2025-01-17] MEDS ORDERED: CefTRIAXone Sodium 1,000 MG in NS 100 ML IV SCH (06:30)
[2025-01-17 07:51] VITALS: BP 126/80
[2025-01-17 15:21] VITALS: BP 111/77
--- NOTE | 2025-01-17 18:01 | NUR ---
SHIFT SUMMARY PT IS A/OX4. INDEPENDENT IN THE ROOM. NO ACUTE CHANGES THROUGHOUT THIS SHIFT. STRAINING URINE. URINE REMAINS RED-TINGED. PT REPORTING PAIN THE THE ABDOMEN AND R FLANK. MEDICATED WITH OXYCODONE AND DILAUDID PER MAR. PT IS PLEASANT AND COOPERATIVE WITH CARE AND CALLS APPROPRIATELY USING THE CALL LIGHT.
[2025-01-17 19:22] VITALS: BP 112/74
--- NOTE | 2025-01-18 04:21 | NUR ---
SHIFT SUMMARY PATIENT IS ALERT AND ORIENTED. PATIENT HAS HAD NO ACUTE EVENTS THIS SHIFT. PATIENT HAS BEEN IND IN ROOM. STRAINING URINE WITH NO LARGE STONES. PATIENT HAS REPORTED PAIN IN ABD AND MEDICATED PER EMAR. PATIENT HAS HAD NO COMPLAINTS OF NAUSEA, VOMITTING OR SOB THIS SHIFT. PATIENT HAS BEEN COOPERATIVE AND COMPLIANT WITH CARE. BED IN LOCKED AND LOWEST POSITION. CALL LIGHT IN PLACE.
[2025-01-18 04:33] VITALS: BP 102/74
[2025-01-18 05:26] LABS: BASOPHILS ABSOLUTE AUTO 0.09 K/mm3 (0.00-0.23); BASOPHILS PERCENT AUTO 1 % (0-2); EOSINOPHILS ABSOLUTE AUTO 0.63 K/mm3 (0.00-0.68); EOSINOPHILS PERCENT AUTO 6 % (0-6); Hematocrit 38.6 % (33.0-51.0); Hemoglobin 13.0 g/dL (11.5-16.0); IMMATURE GRAN ABSOLUTE AUTO 0.03 K/mm3 (0.00-0.10); IMMATURE GRAN PERCENT AUTO 0 % (0-1); LYMPHOCYTES ABSOLUTE AUTO 2.49 K/mm3 (0.84-5.20); LYMPHOCYTES PERCENT AUTO 25 % (21-46); MONOCYTES ABSOLUTE AUTO 0.96 K/mm3 (0.16-1.47); MONOCYTES PERCENT AUTO 10 % (4-13); Mean Corpuscular HGB Conc 33.7 g/dL (31.5-36.5); Mean Corpuscular Volume 90 fL (80-100); NEUTROPHILS ABSOLUTE AUTO 5.86 K/mm3 (1.96-9.15); NEUTROPHILS PERCENT AUTO 58 % (41-73); NRBC ABSOLUTE 0.00 K/mm3 (0.00-0.02); NRBC Auto 0.0 /100 WBC (0.0-0.2); Platelet Count 232 K/mm3 (150-400); RDW Coefficient Variation 13.2 % (11.7-14.2); RDW Standard Deviation 43.4 fL (35.1-46.3)
[2025-01-18 06:04] LABS: Alanine Aminotransfer (ALT/SGP 23.0 U/L (12-78); Albumin, Blood 3.4 g/dL (3.4-5.0); Albumin/Globulin Ratio 1.1 (0.8-1.8); Anion Gap 9.0 mmol/L (3-11); Aspartate Aminotrans (AST/SGOT 15.0 U/L (12-37); Bilirubin, Total 0.4 mg/dL (0.1-1.0); Blood Urea Nitrogen 12.0 mg/dL (8-24); CO2, Blood 28.0 mmol/L (21-32); Calcium, Blood 9.4 mg/dL (8.5-10.1); Chloride, Blood 105.0 mmol/L (98-108); Creatinine, Blood 0.85 mg/dL (0.40-1.00); Globulin, Blood 3.0 g/dL (2.2-4.0); Glucose, Blood 105.0 mg/dL (70-99); Potassium, Blood 3.9 mmol/L (3.5-5.5); Sodium, Blood 138.0 mmol/L (136-145); Total Protein, Blood 6.4 g/dL (6.4-8.2)
[2025-01-18 07:44] VITALS: BP 105/58
[2025-01-18] MEDS ORDERED: Acetaminophen650 M1 PO (12:24)
[2025-01-18] MEDS ORDERED: OXYC10TA19 PO (12:24)
== END 2025-01-18 12:54 | disposition home or self-care (01) | DRG 699 ==
LOC: ER 03:42 → MEDS 03:43
PROVIDERS: Student in an Organized Health Care Education/Training Program; ADMIT Student in an Organized Health Care Education/Training Program
DX: T83.84XA Pain due to genitourinary prosthetic devices, implants and grafts, initial encounter (principal); N13.2 Hydronephrosis with renal and ureteral calculous obstruction; F41.9 Anxiety disorder, unspecified; E87.8 Other disorders of electrolyte and fluid balance, not elsewhere classified; F43.10 Post-traumatic stress disorder, unspecified; R31.9 Hematuria, unspecified; Z96.0 Presence of urogenital implants; Z87.891 Personal history of nicotine dependence; Z79.1 Long term (current) use of non-steroidal anti-inflammatories (NSAID); Z79.899 Other long term (current) drug therapy; Y84.6 Urinary catheterization as the cause of abnormal reaction of the patient, or of later complication, without mention of misadventure at the time of the procedure
CPT/HCPCS: 36415; 74177; 80053; 81001; 81025; 83690; 83735; 85025; 87086; 96365-59; 96375; 96376; 99285-25; A9270; G0378; J0696; J1171; J1885; J2405; J7050; J7120; Q9967

== ENCOUNTER 2025-01-23 11:15 | Inpatient (IN) | payer OTHER ==
[~2025-01-23] VITALS: Ht 162.6 cm; Wt 70.3 kg
[~2025-01-23 11:15] MED LIST changes: +PERCOCET 10-321 EA10 PO
[2025-01-23] MEDS ORDERED: Ketorolac Tromethamine 30mg Vial IV ONE (11:40)
[2025-01-23] MEDS ORDERED: Ondansetron HCl 2 MG / ML 2ML Vial IV ONE (11:40)
[2025-01-23] MEDS ORDERED: HYDROmorphone HCl/Pf 1MG SYR IV ONE ×3 (11:40→16:10)
[2025-01-23 12:04] LABS: BASOPHILS ABSOLUTE AUTO 0.07 K/mm3 (0.00-0.23); BASOPHILS PERCENT AUTO 1 % (0-2); EOSINOPHILS ABSOLUTE AUTO 0.37 K/mm3 (0.00-0.68); EOSINOPHILS PERCENT AUTO 4 % (0-6); Hematocrit 43.1 % (33.0-51.0); Hemoglobin 14.1 g/dL (11.5-16.0); IMMATURE GRAN ABSOLUTE AUTO 0.03 K/mm3 (0.00-0.10); IMMATURE GRAN PERCENT AUTO 0 % (0-1); LYMPHOCYTES ABSOLUTE AUTO 1.80 K/mm3 (0.84-5.20); LYMPHOCYTES PERCENT AUTO 17 % (21-46); MONOCYTES ABSOLUTE AUTO 0.60 K/mm3 (0.16-1.47); MONOCYTES PERCENT AUTO 6 % (4-13); Mean Corpuscular HGB Conc 32.7 g/dL (31.5-36.5); Mean Corpuscular Volume 90 fL (80-100); NEUTROPHILS ABSOLUTE AUTO 7.60 K/mm3 (1.96-9.15); NEUTROPHILS PERCENT AUTO 73 % (41-73); NRBC ABSOLUTE 0.00 K/mm3 (0.00-0.02); NRBC Auto 0.0 /100 WBC (0.0-0.2); Platelet Count 257 K/mm3 (150-400); RDW Coefficient Variation 13.3 % (11.7-14.2); RDW Standard Deviation 43.8 fL (35.1-46.3)
[2025-01-23 12:32] LABS: Alanine Aminotransfer (ALT/SGP 27.0 U/L (12-78); Albumin, Blood 3.8 g/dL (3.4-5.0); Albumin/Globulin Ratio 1.0 (0.8-1.8); Anion Gap 6.0 mmol/L (3-11); Aspartate Aminotrans (AST/SGOT 18.0 U/L (12-37); Bilirubin, Total 0.6 mg/dL (0.1-1.0); Blood Urea Nitrogen 12.0 mg/dL (8-24); CO2, Blood 26.0 mmol/L (21-32); Calcium, Blood 9.7 mg/dL (8.5-10.1); Chloride, Blood 112.0 mmol/L (98-108); Creatinine, Blood 0.73 mg/dL (0.40-1.00); Globulin, Blood 3.7 g/dL (2.2-4.0); Glucose, Blood 98.0 mg/dL (70-99); Potassium, Blood 3.7 mmol/L (3.5-5.5); Sodium, Blood 140.0 mmol/L (136-145); Total Protein, Blood 7.5 g/dL (6.4-8.2)
[2025-01-23 12:52] LABS: Source, Urine Voided
[2025-01-23 13:57] LABS: Bilirubin, Urine Neg (Neg); Color, Urine Brown (P-Yellow); Glucose Qualitative, Urine Neg (Neg); Ketones, Urine Neg (Neg); Leukocyte Esterase, Urine 3+ (Neg); Protein, Urine 4+ (Neg); Specific Gravity, Urine 1.010 (1.003-1.022); Urobilinogen, Urine NORM (Normal)
[2025-01-23 14:01] LABS: Red Blood Cells, Urine TNTC /hpf (0-2); White Blood Cells, Urine 25-50 /hpf (0-5)
[2025-01-23] MEDS ORDERED: CefTRIAXone Sodium 1,000 MG in NS 50 ML IV ONE (14:40)
[2025-01-23] MEDS ORDERED: FLU VACC TS2025-26(6MOS UP)/PF 45 MCG/0.5 ML SYRINGE IM SCH (17:10)
[2025-01-23] MEDS ORDERED: Ondansetron HCl 2 MG / ML 2ML Vial IV PRN (17:15)
[2025-01-23] MEDS ORDERED: Metoclopramide HCl 5MG / ML 2ML Vial IV PRN (17:15)
[2025-01-23] MEDS ORDERED: HYDROcodone 5-APAP 325 TAB PO PRN (17:15)
[2025-01-23] MEDS ORDERED: HYDROmorphone HCl/Pf 1MG SYR IV PRN ×2 (17:15→19:05)
[2025-01-23 19:49] VITALS: BP 133/79
[2025-01-24 04:32] VITALS: BP 102/66
[2025-01-24 04:48] LABS: BASOPHILS ABSOLUTE AUTO 0.07 K/mm3 (0.00-0.23); BASOPHILS PERCENT AUTO 1 % (0-2); EOSINOPHILS ABSOLUTE AUTO 0.54 K/mm3 (0.00-0.68); EOSINOPHILS PERCENT AUTO 7 % (0-6); Hematocrit 38.5 % (33.0-51.0); Hemoglobin 12.6 g/dL (11.5-16.0); IMMATURE GRAN ABSOLUTE AUTO 0.03 K/mm3 (0.00-0.10); IMMATURE GRAN PERCENT AUTO 0 % (0-1); LYMPHOCYTES ABSOLUTE AUTO 2.38 K/mm3 (0.84-5.20); LYMPHOCYTES PERCENT AUTO 29 % (21-46); MONOCYTES ABSOLUTE AUTO 0.58 K/mm3 (0.16-1.47); MONOCYTES PERCENT AUTO 7 % (4-13); Mean Corpuscular HGB Conc 32.7 g/dL (31.5-36.5); Mean Corpuscular Volume 90 fL (80-100); NEUTROPHILS ABSOLUTE AUTO 4.69 K/mm3 (1.96-9.15); NEUTROPHILS PERCENT AUTO 57 % (41-73); NRBC ABSOLUTE 0.00 K/mm3 (0.00-0.02); NRBC Auto 0.0 /100 WBC (0.0-0.2); Platelet Count 206 K/mm3 (150-400); RDW Coefficient Variation 13.4 % (11.7-14.2); RDW Standard Deviation 44.6 fL (35.1-46.3)
--- NOTE | 2025-01-24 05:02 | NUR ---
SHIFT SUMMARY PATIENT IS ALERT AND ORIENTED. PATIENT HAS HAD NO ACUTE EVENTS THIS SHIFT. VITAL SIGNS REVIEWED. PATIENT HAS REPORTED PAIN IN ABD AND MEDICATED PER EMAR. PATIENT HAS NO COMPLAINTS OF SOB, NAUSEA OR VOMITTING THIS SHIFT. CONSULT WAS CALLED AND PROVIDER SAW PATIENT. BED IN LOCKED AND LOWEST POSITION.
[2025-01-24 05:04] LABS: Alanine Aminotransfer (ALT/SGP 24.0 U/L (12-78); Albumin, Blood 3.2 g/dL (3.4-5.0); Albumin/Globulin Ratio 1.0 (0.8-1.8); Anion Gap 7.0 mmol/L (3-11); Aspartate Aminotrans (AST/SGOT 16.0 U/L (12-37); Bilirubin, Total 0.4 mg/dL (0.1-1.0); Blood Urea Nitrogen 11.0 mg/dL (8-24); CO2, Blood 27.0 mmol/L (21-32); Calcium, Blood 9.3 mg/dL (8.5-10.1); Chloride, Blood 109.0 mmol/L (98-108); Creatinine, Blood 0.82 mg/dL (0.40-1.00); Globulin, Blood 3.2 g/dL (2.2-4.0); Glucose, Blood 94.0 mg/dL (70-99); Potassium, Blood 3.6 mmol/L (3.5-5.5); Sodium, Blood 139.0 mmol/L (136-145); Total Protein, Blood 6.4 g/dL (6.4-8.2)
[2025-01-24 07:58] VITALS: BP 121/76
[2025-01-24] MEDS ORDERED: Ondansetron Odt8 MG SL (10:45)
[2025-01-24] MEDS ORDERED: CefTRIAXone Sodium 1,000 MG in NS 100 ML IV SCH (12:00)
[2025-01-24] MEDS ORDERED: NS 250 ML IV PRN (12:35)
[2025-01-24 15:35] VITALS: BP 113/84
--- NOTE | 2025-01-24 19:32 | NUR ---
NOTE PT ALERT AND ORIENTED. PT REQUIRING FREQUNET DILAUDID. HER LLQ DISCOMFORT RETUNRS WITH IN 2 HOURS. SHE TRIED HYDROCODONE BUT HAD AN EMESIS SHORTLY AFTER. SHE REPORTS THAT THE ORAL OPOID AT HOME WAS THE SAME. VSS. UP AD NATHANIEL TO THE BATHROOM. URINATING IS VERY PAINFUL. SHE SCREAMS AND CRIES WHILE VOIDING. HER URINE IS VERY DARK, MAROON COLOR. SHE STATED THAT THE COLOR OF HER URINE IS IMPROVED FROM AT HOME. SHE IS RELUCTANT TO DRINK MUCH BECAUSE THEN SHE WILL HAVE TO VOID AND IT HURTS SO MUCH. THE DILAUDID DOESN'T HELP WITH THE PEEING PAIN IT HELPS WITH THE RESTING LLQ PAIN. BED LOW AND LOCKED. CALL LIGHT WITH IN REACH. DISCUSSED BOWEL CARE WITH PT AND DR CLARK. AWAITING BOWEL CARE ORDERS. CARE ONGOING.
[2025-01-24 20:49] VITALS: BP 118/76
[2025-01-25 03:00] VITALS: BP 119/82
[2025-01-25] MEDS ORDERED: Magnesium Hydroxide Conc 10 ML UDC PO PRN (03:10)
--- NOTE | 2025-01-25 03:56 | NUR ---
METAL AND PLASTIC HEATER SUMMARY PT A&OX4, VSS. ABLE TO COMMUNICATE NEEDS EFFECTIVELY. PT HAS BEEN ASLEEP ON AND OFF THIS SHIFT. CHEST RISE/RESPIRATIONS NOTED. PT REQUESTING DILAUDID FOR PAIN RELIEF. DILAUDID ADMIN X 4 THIS SHIFT AT THIS TIME W/ GOOD EFFECT. HEMATURIA CONTINUES TO BE ONGOING. PT STATES HEMATURIA IMPROVING. PT STATES WAS CRANBERRY RED EARLIER IN THE DAY AND IS NOW MORE OF A PC NETWORK TECHNICIAN STRAWBERRY PINK. NO FURTHER NEEDS AT THIS TIME. BED RAILS UP X 2, BED IN LOWEST POSITION, BED WHEELS LOCKED, PERSONAL BELONGINGS AND CALL LIGHT WITHIN REACH FOR SAFETY.
[2025-01-25 07:22] VITALS: BP 118/74
[2025-01-25 15:29] VITALS: BP 120/77
--- NOTE | 2025-01-25 17:57 | NUR ---
PAIN MANGEMENT MODIFICATION TO PO DILAUDID Q4 HOURS PRN AND IVP DILAUDID PRN FOR PAIN NOT CONTROLLED WITH PO DOSE, DENIES NAUSEA. INDEPENDENT IN ROOM. PLAN OF CARE: FOR SURGICAL PROCEDURE ON 01/27/25 IN EVENING, TOLERATING ORAL INTAKE. PLAN OF CARE IN PROCESS.
[2025-01-25 19:46] VITALS: BP 112/67
[2025-01-26 03:45] VITALS: BP 94/62
[2025-01-26 04:00] VITALS: BP 121/78
--- NOTE | 2025-01-26 04:13 | NUR ---
NUCLEAR PLANT OPERATOR SUMMARY PT A&OX4, VSS. ABLE TO COMMUNICATE NEEDS EFFECTIVELY. PT HAS BEEN ASLEEP ON AND OFF THIS SHIFT. CHEST RISE/RESPIRATIONS NOTED. IV PRN DILAUDID ADMIN X 4 THIS SHIFT W/ GOOD EFFECT. PT DID REFUSE PO DILAUDID STATING THAT SHE DOES NOT FEEL A DIFFERENCE WITH IT. NO BOWEL MOVEMENT THIS SHIFT. CONTINUES TO HAVE ONGOING HEMATURIA. PT STATES THIS IS IMPROVING AND IS NOW VOIDING PINK URINE. NO FURTHER NEEDS AT THIS TIME. BED RAILS UP X 2, BED IN LOWEST POSITION, BED WHEELS LOCKED, PERSONAL BELONGINGS AND CALL LIGHT WITHIN REACH FOR SAFETY.
[2025-01-26 07:44] VITALS: BP 108/75
[2025-01-26 15:10] VITALS: BP 111/75
--- NOTE | 2025-01-26 17:52 | NUR ---
PT ALERT AND ORIENTED X4, INDEPENDENT IN ROOM. ORAL PAIN MANAGEMENT EVERY 4 HOURS AND DILAUDID IVP FOR BREAKTHROUGH PAIN- CONTNUES TO NEED IVP BETWEEN PO DOSES. PLAN FOR SURGERY TOMMOROW-[facility] LATE AFTERNOON PER MD, NPO AT MIDNIGHT. CALL LIGHT IN REACH, BED IN LOWEST POSITION, BRAKES ON, BEDSIDE TABLE IN REACH.
[2025-01-26 19:23] VITALS: BP 102/70
[2025-01-27] VITALS (19 sets, daily range): BP systolic 100–126; BP diastolic 64–91
--- NOTE | 2025-01-27 05:57 | NUR ---
MANAGER OF APPLICATIONS DEVELOPMENT SUMMARY PT A&OX4, VSS. ABLE TO COMMUNICATE NEEDS EFFECTIVELY. PT HAS BEEN ASLEEP ON AND OFF THIS SHIFT. CHEST RISE/RESPIRATIONS NOTED. CONTINUES TO REQUIRE FREQUENT PO AND IV DILAUDID ADMIN. IV DILAUDID ADMIN X 5 AND PO DILAUDID ADMIN X 1 THIS SHIFT. PT REPORTS GOOD EFFECT W/ IV DILAUDID, BUT STATES SHE DOES NOT FEEL A DIFFERENCE W/ PO DILAUDID STILL. HAS BEEN NPO SINCE MIDNIGHT IN PREPARATION FOR PROCEDURE TODAY. BED RAILS UP X 2, BED IN LOWEST POSITION, BED WHEELS LOCKED, PERSONAL BELONGINGS AND CALL LIGHT WITHIN REACH FOR SAFETY.
[2025-01-27] MEDS ORDERED: NS 1,000 ML IV SCH (10:25)
--- NOTE | 2025-01-27 17:06 | NUR ---
End of shift summary: Patient is alert and oriented x4; pleasant and cooperative with care. Patient with continued pain control and medications administered as ordered. Patient with mild anxiety r/t surgery today and the "wait"; spouse at bedside. Patient all ready to have surgery and plan remains in approximately 6pm for picker and sorter load and unload. Denies SOB, CP or pressure, N/V/D at this time. Bed in lowest position and call light within reach. Will continue monitor until next shift nurse arrives and report is given or patient goes to surger.
[2025-01-27] MEDS ORDERED: CeFAZolin Sodium 2,000 MG in NS 100 ML IV SCH (17:45)
[2025-01-27] MEDS ORDERED: FentaNYL Citrate 50 MCG/ML 2 ML Injection ONE ×2 (17:49→20:06)
[2025-01-27] MEDS ORDERED: Midazolam HCl 1MG / ML 2ML Vial ONE (17:56)
[2025-01-27] MEDS ORDERED: Midazolam HCl 1MG / ML 2ML Vial IV ONE (18:05)
[2025-01-27] MEDS ORDERED: Ondansetron HCl 2 MG / ML 2ML Vial ONE (18:26)
[2025-01-27] MEDS ORDERED: Dexamethasone Sod Phos 10 MG/ML 1ML VIAL ONE (18:26)
[2025-01-27] MEDS ORDERED: HYDROmorphone HCl/Pf 1MG SYR IV PRN (18:30)
[2025-01-27] MEDS ORDERED: FentaNYL Citrate 50 MCG/ML 2 ML Injection IV PRN ×2 (18:30→18:35)
[2025-01-27] MEDS ORDERED: Ondansetron HCl 2 MG / ML 2ML Vial IV PRN (18:35)
[2025-01-27] MEDS ORDERED: Albuterol 2.5 MG/3 ML VIAL INH PRN (18:35)
--- NOTE | 2025-01-27 21:04 | NUR ---
PT BACK FROM SURGERY. REPORT RECEIVED FROM TELEVISION AGENT.
[2025-01-28 00:03] VITALS: BP 118/86
[2025-01-28] MEDS ORDERED: OxyCODONE 10/Acetamin 325 TABLET PO PRN (02:35)
[2025-01-28 03:51] VITALS: BP 105/70
[2025-01-28 05:37] LABS: Alanine Aminotransfer (ALT/SGP 21.0 U/L (12-78); Albumin, Blood 3.2 g/dL (3.4-5.0); Albumin/Globulin Ratio 0.9 (0.8-1.8); Anion Gap 7.0 mmol/L (3-11); Aspartate Aminotrans (AST/SGOT 13.0 U/L (12-37); Bilirubin, Total 0.4 mg/dL (0.1-1.0); Blood Urea Nitrogen 12.0 mg/dL (8-24); CO2, Blood 26.0 mmol/L (21-32); Calcium, Blood 9.3 mg/dL (8.5-10.1); Chloride, Blood 108.0 mmol/L (98-108); Creatinine, Blood 0.84 mg/dL (0.40-1.00); Globulin, Blood 3.4 g/dL (2.2-4.0); Glucose, Blood 151.0 mg/dL (70-99); Potassium, Blood 3.9 mmol/L (3.5-5.5); Sodium, Blood 137.0 mmol/L (136-145); Total Protein, Blood 6.6 g/dL (6.4-8.2)
[2025-01-28 05:42] LABS: BASOPHILS ABSOLUTE AUTO 0.02 K/mm3 (0.00-0.23); BASOPHILS PERCENT AUTO 0 % (0-2); EOSINOPHILS ABSOLUTE AUTO 0.01 K/mm3 (0.00-0.68); EOSINOPHILS PERCENT AUTO 0 % (0-6); Hematocrit 38.7 % (33.0-51.0); Hemoglobin 13.2 g/dL (11.5-16.0); IMMATURE GRAN ABSOLUTE AUTO 0.03 K/mm3 (0.00-0.10); IMMATURE GRAN PERCENT AUTO 0 % (0-1); LYMPHOCYTES ABSOLUTE AUTO 0.97 K/mm3 (0.84-5.20); LYMPHOCYTES PERCENT AUTO 11 % (21-46); MONOCYTES ABSOLUTE AUTO 0.42 K/mm3 (0.16-1.47); MONOCYTES PERCENT AUTO 5 % (4-13); Mean Corpuscular HGB Conc 34.1 g/dL (31.5-36.5); Mean Corpuscular Volume 89 fL (80-100); NEUTROPHILS ABSOLUTE AUTO 7.48 K/mm3 (1.96-9.15); NEUTROPHILS PERCENT AUTO 84 % (41-73); NRBC ABSOLUTE 0.00 K/mm3 (0.00-0.02); NRBC Auto 0.0 /100 WBC (0.0-0.2); Platelet Count 244 K/mm3 (150-400); RDW Coefficient Variation 12.6 % (11.7-14.2); RDW Standard Deviation 41.2 fL (35.1-46.3)
--- NOTE | 2025-01-28 07:43 | NUR ---
DECORATOR INSPECTOR SUMMARY PT A&OX4, VSS. ABLE TO COMMUNICATE NEEDS EFFECTIVELY. PT HAD STENT REPLACEMENT PROCEDURE TODAY. VSS SINCE RETURN. HAS BEEN ASLEEP ON AND OFF THIS SHIFT SINCE PROCEDURE. CHEST RISE/RESPIRATIONS NOTED. PO DILAUDID ADMIN X 2 AND IV DILAUDID ADMIN X 2 W/ GOOD EFFECT. PT STATES ONGOING HEMATURIA SINCE PROCEDURE, BUT THAT HEMATURIA IS IMPROVING. BED RAILS UP X 2, BED IN LOWEST POSITION, BED WHEELS LOCKED, PERSONAL BELONGINGS AND CALL LIGHT WITHIN REACH FOR SAFETY.
[2025-01-28 08:00] VITALS: BP 114/72
[2025-01-28] MEDS ORDERED: Percocet 5-3251 EACH PO (12:28)
[2025-01-28] MEDS ORDERED: DIAZ2 PO (12:30)
[2025-01-28] MEDS ORDERED: OXYB5 PO (12:30)
--- NOTE | 2025-01-28 14:25 | NUR ---
DISCHARGE SUMMARY PATIENT DISCHARGED HOME WITH TO DRIVE. STRINGS TO STENTS VISIBLE. REPORTS LESSENED PAIN WITH URINATION AFTER MEDICATION CHANGES BY DR ZHANG. IV REMOVED WITHOUT COMPLICATION. DISCHARGE PACKET GIVEN AND REVIEWED, QUESTIONS ANSWERED, VERBALIZED UNDERSTANDING.
== END 2025-01-28 12:55 | disposition home or self-care (01) | DRG 660 ==
LOC: ER 11:15 → MEDS 11:16 → ENPENDDIS 01-28 12:04 → MEDS 01-28 12:55
PROVIDERS: Emergency Medicine; Urology; ADMIT Internal Medicine
PROC: 3E03329 Introduction of Other Anti-infective into Peripheral Vein, Percutaneous Approach (ICD-10-PCS; 2025-01-24)
PROC: 3E02340 Introduction of Influenza Vaccine into Muscle, Percutaneous Approach (ICD-10-PCS; 2025-01-24)
PROC: 0TC78ZZ Extirpation of Matter from Left Ureter, Via Natural or Artificial Opening Endoscopic (ICD-10-PCS; 2025-01-27)
PROC: 0TC68ZZ Extirpation of Matter from Right Ureter, Via Natural or Artificial Opening Endoscopic (ICD-10-PCS; 2025-01-27)
PROC: 0TC18ZZ Extirpation of Matter from Left Kidney, Via Natural or Artificial Opening Endoscopic (ICD-10-PCS; 2025-01-27)
PROC: 0TC08ZZ Extirpation of Matter from Right Kidney, Via Natural or Artificial Opening Endoscopic (ICD-10-PCS; 2025-01-27)
PROC: BT141ZZ Fluoroscopy of Kidneys, Ureters and Bladder using Low Osmolar Contrast (ICD-10-PCS; 2025-01-27)
PROC: 0T788DZ Dilation of Bilateral Ureters with Intraluminal Device, Via Natural or Artificial Opening Endoscopic (ICD-10-PCS; principal; 2025-01-27 15:30)
DX: T83.592A Infection and inflammatory reaction due to indwelling ureteral stent, initial encounter (principal); N13.2 Hydronephrosis with renal and ureteral calculous obstruction; R31.9 Hematuria, unspecified; F41.9 Anxiety disorder, unspecified; F12.90 Cannabis use, unspecified, uncomplicated; F43.10 Post-traumatic stress disorder, unspecified; R82.81 Pyuria; Z79.899 Other long term (current) drug therapy; Z79.891 Long term (current) use of opiate analgesic; Z87.442 Personal history of urinary calculi; Y84.6 Urinary catheterization as the cause of abnormal reaction of the patient, or of later complication, without mention of misadventure at the time of the procedure; Z23 Encounter for immunization
CPT/HCPCS: 36415; 80053; 81001; 84703; 85025; 87086; 94762; 96365; 96366; 96375; 96376; 99284-25; A9270; C1758; C1769; C2617; G0378; J0690; J0696; J1100; J1171; J1885; J2250; J2405; J2704; J3010; J7030; J7050; J7120

== ENCOUNTER 2025-02-09 17:07 | Inpatient (IN) | payer OTHER ==
[~2025-02-09] VITALS: Ht 172.7 cm; Wt 72.0 kg
[~2025-02-09 17:07] MED LIST changes: +DIAZ2 PO; +OXYB5 PO; +Ondansetron Odt8 MG SL
[2025-02-09] MEDS ORDERED: Ketorolac Tromethamine 15mg Vial IV ONE (17:25)
[2025-02-09 17:40] LABS: Source, Urine Clean Catch
[2025-02-09 17:54] LABS: BASOPHILS ABSOLUTE AUTO 0.06 K/mm3 (0.00-0.23); BASOPHILS PERCENT AUTO 1 % (0-2); EOSINOPHILS ABSOLUTE AUTO 0.14 K/mm3 (0.00-0.68); EOSINOPHILS PERCENT AUTO 1 % (0-6); Hematocrit 41.5 % (33.0-51.0); Hemoglobin 13.9 g/dL (11.5-16.0); IMMATURE GRAN ABSOLUTE AUTO 0.03 K/mm3 (0.00-0.10); IMMATURE GRAN PERCENT AUTO 0 % (0-1); LYMPHOCYTES ABSOLUTE AUTO 2.12 K/mm3 (0.84-5.20); LYMPHOCYTES PERCENT AUTO 17 % (21-46); MONOCYTES ABSOLUTE AUTO 0.66 K/mm3 (0.16-1.47); MONOCYTES PERCENT AUTO 5 % (4-13); Mean Corpuscular HGB Conc 33.5 g/dL (31.5-36.5); Mean Corpuscular Volume 90 fL (80-100); NEUTROPHILS ABSOLUTE AUTO 9.69 K/mm3 (1.96-9.15); NEUTROPHILS PERCENT AUTO 76 % (41-73); NRBC ABSOLUTE 0.00 K/mm3 (0.00-0.02); NRBC Auto 0.0 /100 WBC (0.0-0.2); Platelet Count 287 K/mm3 (150-400); RDW Coefficient Variation 13.2 % (11.7-14.2); RDW Standard Deviation 43.0 fL (35.1-46.3)
[2025-02-09 17:56] LABS: Bilirubin, Urine Neg (Neg); Color, Urine Yellow (P-Yellow); Glucose Qualitative, Urine Neg (Neg); Ketones, Urine Neg (Neg); Leukocyte Esterase, Urine 3+ (Neg); Protein, Urine 2+ (Neg); Specific Gravity, Urine 1.015 (1.003-1.022); Urobilinogen, Urine NORM (Normal)
[2025-02-09 18:31] LABS: Red Blood Cells, Urine 25-50 /hpf (0-2); White Blood Cells, Urine 25-50 /hpf (0-5)
[2025-02-09 18:56] LABS: Beta HCG, Quantitative, Serum <1 mIU/mL (0-3)
[2025-02-09] MEDS ORDERED: FentaNYL Citrate 50 MCG/ML 2 ML Injection IV PRN (19:30)
[2025-02-09] MEDS ORDERED: CefTRIAXone Sodium 1,000 MG in NS 50 ML IV ONE (19:30)
[2025-02-09] MEDS ORDERED: NS 1,000 ML IV SCH (19:30)
[2025-02-09 19:33] LABS: Alanine Aminotransfer (ALT/SGP 46 U/L (12-78); Albumin, Blood 4.0 g/dL (3.4-5.0); Albumin/Globulin Ratio 1.1 (0.8-1.8); Anion Gap 11 mmol/L (3-11); Aspartate Aminotrans (AST/SGOT 31 U/L (12-37); Bilirubin, Total 0.5 mg/dL (0.1-1.0); Blood Urea Nitrogen 7 mg/dL (8-24); CO2, Blood 23 mmol/L (21-32); Calcium, Blood 9.7 mg/dL (8.5-10.1); Chloride, Blood 108 mmol/L (98-108); Creatinine, Blood 0.61 mg/dL (0.40-1.00); Globulin, Blood 3.8 g/dL (2.2-4.0); Glucose, Blood 96 mg/dL (70-99); Potassium, Blood 4.0 mmol/L (3.5-5.5); Sodium, Blood 138 mmol/L (136-145); Total Protein, Blood 7.8 g/dL (6.4-8.2)
[2025-02-09] MEDS ORDERED: HYDROmorphone HCl/Pf 1MG SYR IV ONE (21:00)
[2025-02-09] MEDS ORDERED: HYDROmorphone HCl/Pf 1MG SYR IV PRN (21:55)
[2025-02-09] MEDS ORDERED: Ondansetron HCl 2 MG / ML 2ML Vial IV PRN (23:20)
[2025-02-09] MEDS ORDERED: FLU VACC TS2025-26(6MOS UP)/PF 45 MCG/0.5 ML SYRINGE IM SCH (23:20)
[2025-02-10] MEDS ORDERED: NS 1,000 ML IV SCH
[2025-02-10 03:13] VITALS: BP 128/81
--- NOTE | 2025-02-10 04:57 | NUR ---
PT WAS VISIBLY IN PAIN WHEN SHE CAME TO THE FLOOR FROM THE ED. GAVE A DOSE OF DILAUDID AND SINCE PATIENT HAS BEEN RESTING COMFORTABLY. NO ACUTE EVENTS. VITALS STABLE.
[2025-02-10 05:29] LABS: BASOPHILS ABSOLUTE AUTO 0.07 K/mm3 (0.00-0.23); BASOPHILS PERCENT AUTO 1 % (0-2); EOSINOPHILS ABSOLUTE AUTO 0.36 K/mm3 (0.00-0.68); EOSINOPHILS PERCENT AUTO 4 % (0-6); Hematocrit 35.8 % (33.0-51.0); Hemoglobin 11.8 g/dL (11.5-16.0); IMMATURE GRAN ABSOLUTE AUTO 0.04 K/mm3 (0.00-0.10); IMMATURE GRAN PERCENT AUTO 0 % (0-1); LYMPHOCYTES ABSOLUTE AUTO 2.42 K/mm3 (0.84-5.20); LYMPHOCYTES PERCENT AUTO 24 % (21-46); MONOCYTES ABSOLUTE AUTO 0.72 K/mm3 (0.16-1.47); MONOCYTES PERCENT AUTO 7 % (4-13); Mean Corpuscular HGB Conc 33.0 g/dL (31.5-36.5); Mean Corpuscular Volume 90 fL (80-100); NEUTROPHILS ABSOLUTE AUTO 6.70 K/mm3 (1.96-9.15); NEUTROPHILS PERCENT AUTO 65 % (41-73); NRBC ABSOLUTE 0.00 K/mm3 (0.00-0.02); NRBC Auto 0.0 /100 WBC (0.0-0.2); Platelet Count 236 K/mm3 (150-400); RDW Coefficient Variation 13.2 % (11.7-14.2); RDW Standard Deviation 43.9 fL (35.1-46.3)
[2025-02-10 05:50] LABS: Albumin, Blood 3.2 g/dL (3.4-5.0); Anion Gap 7 mmol/L (3-11); Blood Urea Nitrogen 8 mg/dL (8-24); CO2, Blood 26 mmol/L (21-32); Calcium, Blood 8.5 mg/dL (8.5-10.1); Chloride, Blood 111 mmol/L (98-108); Creatinine, Blood 0.75 mg/dL (0.40-1.00); Glucose, Blood 99 mg/dL (70-99); Magnesium, Blood 1.8 mg/dL (1.6-2.4); Phosphorus, Blood 2.8 mg/dL (2.5-4.9); Potassium, Blood 3.7 mmol/L (3.5-5.5); Sodium, Blood 140 mmol/L (136-145)
[2025-02-10] MEDS ORDERED: HYDROmorphone HCl/Pf 1MG SYR IV PRN (06:45)
[2025-02-10 07:46] VITALS: BP 111/77
[2025-02-10] MEDS ORDERED: Enoxaparin 40 MG/0.4 ML SYR SC SCH (09:00)
[2025-02-10] MEDS ORDERED: Percocet 5-3251 EACH PO (15:03)
[2025-02-10] MEDS ORDERED: Cefpodoxime Pr100 MG PO (15:03)
--- NOTE | 2025-02-10 16:24 | NUR ---
SHIFT/DISCHARGE SUMMARY: PATIENT MEDICATED FOR L LOWER ABDOMINAL PAIN AND FOR NAUSEA PER EMAR c GOOD EFFECT. PATIENT A/OX4, PLEASANT AND COOPERATIVE c CARE. PATIENT DENIES CP/PRESSURE, DIZZINESS AND SOB. PATIENT TOLERATED DIET WELL. VITAL SIGNS REVIEWED. PIV DC'D. PATIENT DISCHARGE HOME. DISCHARGE INSTRUCTIONS PACKET AND HARD SCRIPT OF PERCOCET GIVEN TO PATIENT. PATIENT EDUCATED ON ADMITTING DX'S OF COLITIS, S/S, TX AND TO F/U c PCP. PATIENT VERBALIZED UNDERSTANDING c NO FURTHER QUESTIONS. RX WAS FAXED TO PATIENT PREFERRED PHARMACY-[facility]. ALL PERSONAL BELONGINGS WERE SENT c PATIENT. PATIENT LEFT THE ROOM AT 1528, DECLINE W/C TRANSPORT.
[2025-02-10] MEDS ORDERED: CefTRIAXone Sodium 1,000 MG in NS 100 ML IV SCH (21:00)
== END 2025-02-10 15:52 | disposition home or self-care (01) | DRG 694 ==
LOC: ER 17:07 → MEDS 17:08 → ERHOLD 17:08 → MEDS 02-10 03:08 → ENPENDDIS 02-10 14:30 → MEDS 02-10 15:15
PROVIDERS: Student in an Organized Health Care Education/Training Program; ADMIT Internal Medicine
DX: N20.0 Calculus of kidney (principal); N39.0 Urinary tract infection, site not specified; K52.9 Noninfective gastroenteritis and colitis, unspecified; F41.9 Anxiety disorder, unspecified; F43.10 Post-traumatic stress disorder, unspecified; G89.4 Chronic pain syndrome; Z87.442 Personal history of urinary calculi; Z87.440 Personal history of urinary (tract) infections; Z79.899 Other long term (current) drug therapy
CPT/HCPCS: 36415; 74176; 80048; 80053; 80069; 81001; 81050; 82340; 82507; 83735; 83945; 83970; 84105; 84300; 84560; 84702; 85025; 85027; 87086; 96361; 96365; 96375; 96376; 99285-25; A9270; G0378; J0696; J1171; J1885; J2405; J3010; J7030

== ENCOUNTER 2025-03-20 19:11 | Emergency (ER) | payer OTHER ==
[~2025-03-20] VITALS: Ht 162.6 cm; Wt 72.6 kg
[~2025-03-20 19:11] MED LIST changes: +Cefpodoxime Pr100 MG PO
[2025-03-20] MEDS ORDERED: Ketorolac Tromethamine 15mg Vial IV ONE (20:40)
[2025-03-20] MEDS ORDERED: OxyCODONE 10/Acetamin 325 TABLET PO ONE (20:40)
[2025-03-20 20:46] LABS: BASOPHILS ABSOLUTE AUTO 0.07 K/mm3 (0.00-0.23); BASOPHILS PERCENT AUTO 1 % (0-2); EOSINOPHILS ABSOLUTE AUTO 0.31 K/mm3 (0.00-0.68); EOSINOPHILS PERCENT AUTO 3 % (0-6); Hematocrit 40.3 % (33.0-51.0); Hemoglobin 13.8 g/dL (11.5-16.0); IMMATURE GRAN ABSOLUTE AUTO 0.02 K/mm3 (0.00-0.10); IMMATURE GRAN PERCENT AUTO 0 % (0-1); LYMPHOCYTES ABSOLUTE AUTO 2.84 K/mm3 (0.84-5.20); LYMPHOCYTES PERCENT AUTO 27 % (21-46); MONOCYTES ABSOLUTE AUTO 0.80 K/mm3 (0.16-1.47); MONOCYTES PERCENT AUTO 8 % (4-13); Mean Corpuscular HGB Conc 34.2 g/dL (31.5-36.5); Mean Corpuscular Volume 86 fL (80-100); NEUTROPHILS ABSOLUTE AUTO 6.53 K/mm3 (1.96-9.15); NEUTROPHILS PERCENT AUTO 62 % (41-73); NRBC ABSOLUTE 0.00 K/mm3 (0.00-0.02); NRBC Auto 0.0 /100 WBC (0.0-0.2); Platelet Count 251 K/mm3 (150-400); RDW Coefficient Variation 13.8 % (11.7-14.2); RDW Standard Deviation 43.6 fL (35.1-46.3)
[2025-03-20 21:18] LABS: Alanine Aminotransfer (ALT/SGP 26.0 U/L (12-78); Albumin, Blood 4.0 g/dL (3.4-5.0); Albumin/Globulin Ratio 1.1 (0.8-1.8); Anion Gap 10.0 mmol/L (3-11); Aspartate Aminotrans (AST/SGOT 18.0 U/L (12-37); Bilirubin, Total 0.4 mg/dL (0.1-1.0); Blood Urea Nitrogen 12.0 mg/dL (8-24); CO2, Blood 25.0 mmol/L (21-32); Calcium, Blood 9.6 mg/dL (8.5-10.1); Chloride, Blood 106.0 mmol/L (98-108); Creatinine, Blood 0.73 mg/dL (0.40-1.00); Globulin, Blood 3.8 g/dL (2.2-4.0); Glucose, Blood 85.0 mg/dL (70-99); Potassium, Blood 3.8 mmol/L (3.5-5.5); Sodium, Blood 137.0 mmol/L (136-145); Total Protein, Blood 7.8 g/dL (6.4-8.2)
[2025-03-20 21:37] LABS: Source, Urine Clean Catch
[2025-03-20 21:40] LABS: Glucose Qualitative, Urine Neg (Neg); Ketones, Urine Neg (Neg); Leukocyte Esterase, Urine Neg (Neg); Protein, Urine 2+ (Neg); Specific Gravity, Urine 1.020 (1.003-1.022); Urobilinogen, Urine 3+ (Normal)
[2025-03-20 21:41] LABS: Bilirubin, Urine 2+ (Neg); Color, Urine Orange (P-Yellow)
[2025-03-20 22:10] LABS: Red Blood Cells, Urine 0-2 /hpf (0-2)
[2025-03-20] MEDS ORDERED: CefTRIAXone Sodium 1,000 MG in NS 100 ML IV ONE (23:00)
[2025-03-20] MEDS ORDERED: NS 1,000 ML IV SCH (23:00)
[2025-03-20] MEDS ORDERED: Ondansetron HCl 2 MG / ML 2ML Vial IV ONE (23:25)
[2025-03-21 01:19] VITALS: BP 128/84
[2025-03-21] MEDS ORDERED: OXAYDO5 M1 PO (01:51)
[2025-03-21] MEDS ORDERED: CEFP200 PO (01:51)
[2025-03-21] MEDS ORDERED: ONDA4ODT MM (01:51)
== END 2025-03-21 02:30 | disposition home or self-care (01) ==
LOC: ER 19:11
PROVIDERS: Student in an Organized Health Care Education/Training Program
DX: N20.0 Calculus of kidney (principal); N39.0 Urinary tract infection, site not specified; Z87.891 Personal history of nicotine dependence; Z79.899 Other long term (current) drug therapy
CPT/HCPCS: 74176; 80053; 81001; 83605; 85025; 87086; 96365; 96367; 96375; 99284-25; A9270; J0696; J1885; J2405; J7030